=== PATIENT | male | born 1970 | race African-American/Black ===

== ENCOUNTER → 2017-11-02 | Outpatient (CLI) | payer OTHER ==
--- NOTE | 2017-11-02 14:07 | RADIOLOGY REPORT (SQ) ---
EXAM DESCRIPTION: MRI LT LOWER JOINT WITHOUT COMPLETED DATE/TIME: 11/02/2017 12:56 pm REASON FOR STUDY: LETITIA KNEE PAIN M25.562 PAIN IN LEFT KNEE M25.561 PAIN IN RIGHT KNEE COMPARISON: None. TECHNIQUE: Leftknee images acquired and stored on PACS. Multiplanar images include fat sensitive se quences as T1, water sensitive sequences as FST2 or STIR, cartilage sensitive sequences as FSPD, and gradient echo sequences. LIMITATIONS: None. FINDINGS: JOINT AND BURSAE: No effusion. BONE CORTEX AND MARROW: No alteration of signal to suggest marrow replacement. No worrisome bone lesi ons. No occult fracture. ACL: Intact. No degeneration or ganglion cyst. PCL: Intact. MCL: Intact. No periligamentous edema or fluid. LCL: Intact. No periligamentous edema or fluid. MEDIAL MENISCUS: No tears. No abnormal signal. LATERAL MENISCUS: No tears. No abnormal signal. MEDIAL COMPARTMENT: Cartilage preserved. No bone bruises or reactive marrow edema. No osteophytes. LATERAL COMPARTMENT: Cartilage preserved. No bone bruises or reactive marrow edema. No osteophytes. PATELLA: Mild irregular cartilaginous loss of the patella. Trochlear cartilage is intact. There are no significant osteophytes. EXTENSOR MECHANISM: Postsurgical changes of the patellar tendon. Some thickening signal alteration. SOFT TISSUES: Adjacent muscles and subcutaneous tissues normal. Normal flow void in popliteal artery and vein. OTHER: No other significant finding. IMPRESSION: No internal derangement. Surgical changes of the patellar tendon with some tendinopathy and thickening. Mild patellar chondromalacia. TECHNICAL DOCUMENTATION: JOB ID: [id number] [employer]- All Rights Reserved Reading location - IP/workstation name: [email or web address]
--- NOTE | 2017-11-03 08:41 | RADIOLOGY REPORT (SQ) ---
EXAM DESCRIPTION: MRI RT LOWER JOINT WITHOUT COMPLETED DATE/TIME: 11/02/2017 12:56 pm REASON FOR STUDY: LETITIA KNEE PAIN M25.562 PAIN IN LEFT KNEE M25.561 PAIN IN RIGHT KNEE COMPARISON: None. TECHNIQUE: Rightknee images acquired and stored on PACS. Multiplanar images include fat sensitive s equences as T1, water sensitive sequences as FST2 or STIR, cartilage sensitive sequences as FSPD, and gradient echo sequences. LIMITATIONS: None. FINDINGS: JOINT AND BURSAE: No effusion. BONE CORTEX AND MARROW: No alteration of signal to suggest marrow replacement. No worrisome bone lesi ons. No occult fracture. ACL: Orientation and laxity of the ACL suggests a chronic tear likely from the femoral attachment wit h fibrous reattachment to the PCL. Possibly a chronic high-grade partial tear. PCL: Intact. MCL: Intact. No periligamentous edema or fluid. LCL: Intact. No periligamentous edema or fluid. MEDIAL MENISCUS: Flap tear in superior surface of the mid posterior meniscus. LATERAL MENISCUS: No tears. No abnormal signal. MEDIAL COMPARTMENT: No focal cartilage loss. Medial osteophytes. LATERAL COMPARTMENT: Cartilage preserved. No bone bruises or reactive marrow edema. No osteophytes. PATELLA: No chondromalacia. No subchondral cysts. Medial and lateral retinacula intact. EXTENSOR MECHANISM: Intact. Quadriceps and patella tendons normal. SOFT TISSUES: Adjacent muscles and subcutaneous tissues normal. Normal flow void in popliteal artery and vein. OTHER: No other significant finding. 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 Flap tear of the medial meniscus with mild degenerative changes of the medial compartment TECHNICAL DOCUMENTATION: JOB ID: [id number] [employer]- All Rights Reserved Reading location - IP/workstation name: [email or web address]
== END ==
LOC: RAD 11:26
PROVIDERS: ATTEND Physician Assistant Medical
DX: M16.0 Bilateral primary osteoarthritis of hip (principal); M17.0 Bilateral primary osteoarthritis of knee; M54.5 Low back pain; F31.9 Bipolar disorder, unspecified; G47.30 Sleep apnea, unspecified; F34.9 Persistent mood [affective] disorder, unspecified; Z72.0 Tobacco use; F43.10 Post-traumatic stress disorder, unspecified; E11.65 Type 2 diabetes mellitus with hyperglycemia; E66.9 Obesity, unspecified

== ENCOUNTER 2018-10-29 08:40 | Inpatient (IN) | payer OTHER ==
--- NOTE | 2018-10-29 10:06 | RADIOLOGY REPORT (SQ) ---
EXAM DESCRIPTION: CT HEAD WITHOUT COMPLETED DATE/TIME: 10/29/2018 9:54 am REASON FOR STUDY: headache, sudden onset COMPARISON: None. TECHNIQUE: Axial images acquired through the brain without intravenous contrast. Images reviewed wi th bone, brain and subdural windows. Additional sagittal and coronal reconstructions were generated. Images stored on PACS. All CT scanners at this facility use dose modulation, iterative reconstruction, and/or weight based d osing when appropriate to reduce radiation dose to as low as reasonably achievable (ALARA). [facility]: Dose Right [facility]: CareDose [facility]: Dose Right [facility]: Teradose 4D [facility]: [employer] Technologies RADIATION DOSE: CT Rad equipment meets quality standard of care and radiation dose reduction techniq ues were employed. CTDIvol: 53.2 mGy. DLP: 1070 mGy-cm. mGy. LIMITATIONS: None. FINDINGS: VENTRICLES: Normal size and contour. CEREBRUM: No masses. No hemorrhage. No midline shift. There is a focal hypodensity of the very med ial, posterior left temporal lobe (series 2, image 15) of uncertain significance. CEREBELLUM: No masses. No hemorrhage. No alteration of density. No evidence for acute infarction. EXTRAAXIAL SPACES: No fluid collections. No masses. ORBITS AND GLOBE: No intra- or extraconal masses. Normal contour of globe without masses. CALVARIUM: No fracture. PARANASAL SINUSES: No fluid or mucosal thickening. SOFT TISSUES: No mass or hematoma. OTHER: No other significant finding. IMPRESSION: There is a focal hypodensity of the very medial, posterior left temporal lobe (series 2, image 15) of uncertain significance, although possibly representing an acute to subacute infarction. Consider MRI to further evaluate for acute diffusion restriction. EVIDENCE OF ACUTE STROKE: YES. LEFT MCA. COMMENT: Quality ID # [id number]: Final reports with documentation of one or more dose reduction techniques (e.g., Automated exposure control, adjustment of the mA and/or kV according to patient size, use of iterative reconstruction technique) TECHNICAL DOCUMENTATION: JOB ID: [id number] [employer]- All Rights Reserved Reading location - IP/workstation name: [email or web address]
[2018-10-29] MEDS ORDERED: ASPIRIN 81 MG TABLET, CHEWABLE PO ONE (10:39)
[2018-10-29 11:08] LABS: ABSOLUTE BASOPHILS # (AUTO) 0.1 10^3/uL (0.0-0.2); ABSOLUTE EOSINOPHILS # (AUTO) 0.2 10^3/uL (0.0-0.6); ABSOLUTE LYMPHOCYTES (AUTO) 2.5 10^3/uL (0.5-4.7); ABSOLUTE MONOCYTES (AUTO) 0.7 10^3/uL (0.1-1.4); ABSOLUTE NEUT (AUTO) 7.4 10^3/uL (1.7-8.2); BASOPHILS % (AUTO) 0.6 % (0-2); EOSINOPHILS % (AUTO) 1.8 % (0-6); HEMATOCRIT 41.9 % (37.9-51.0); HEMOGLOBIN 13.6 g/dL (13.5-17.0); LYMPHOCYTES % (AUTO) 23.1 % (13-45); MEAN CORPUSCULAR HEMOGLOBIN 26.7 pg (27.0-33.4); MEAN CORPUSCULAR HGB CONC 32.5 g/dL (32.0-36.0); MEAN CORPUSCULAR VOLUME 82 fl (80-97); MONOCYTES % (AUTO) 6.5 % (3-13); PLATELET COUNT 171 10^3/uL (150-450); RED CELL DISTRIBUTION WIDTH 13.1 % (11.5-14.0); TOTAL CELLS COUNTED % (AUTO) 100 %; WHITE BLOOD COUNT 10.9 10^3/uL (4.0-10.5)
[2018-10-29 11:14] LABS: INTERNATIONAL RATION (INR) 0.96; PROTHROMBIN TIME 12.8 SEC (11.4-15.4)
[2018-10-29 11:15] LABS: PARTIAL THROMBOPLASTIN TIME 21.8 SEC (23.5-35.8)
[2018-10-29 11:32] LABS: ALANINE AMINOTRANSFERASE 28 U/L (21-72); ALBUMIN 4.6 g/dL (3.5-5.0); ALKALINE PHOSPHATASE 103 U/L (38-126); ANION GAP 9 (5-19); ASPARTATE AMINO TRANSFERASE 23 U/L (17-59); BILIRUBIN,DIRECT 0.2 mg/dL (0.0-0.4); BILIRUBIN,TOTAL 0.6 mg/dL (0.2-1.3); BLOOD UREA NITROGEN 13 mg/dL (7-20); CARBON DIOXIDE 30 mmol/L (22-30); CHLORIDE 99 mmol/L (98-107); GLUCOSE 237 mg/dL (75-110); POTASSIUM 4.9 mmol/L (3.6-5.0); SODIUM 138.2 mmol/L (137-145); TOTAL PROTEIN 8.1 g/dL (6.3-8.2)
--- NOTE | 2018-10-29 12:33 | RADIOLOGY REPORT (SQ) ---
EXAM DESCRIPTION: MRA HEAD WITHOUT COMPLETED DATE/TIME: 10/29/2018 12:18 pm REASON FOR STUDY: cva COMPARISON: None. TECHNIQUE: Axial 3-D [id number] acquisition imaging performed through the brain in the area of t he [place] of [place]. Images reformatted using 3-D MIPS. LIMITATIONS: None. FINDINGS: SOURCE IMAGES: See separate report of the same date. 3-D MIP: No aneurysm. No occlusions. No significant stenosis. OTHER: No other significant finding. IMPRESSION: NORMAL MRA OF THE [place]. TECHNICAL DOCUMENTATION: JOB ID: [id number]- All Rights Reserved Reading location - IP/workstation name: [email or web address]
--- NOTE | 2018-10-29 12:43 | RADIOLOGY REPORT (SQ) ---
EXAM DESCRIPTION: MRI HEAD WITHOUT COMPLETED DATE/TIME: 10/29/2018 12:17 pm REASON FOR STUDY: CVA COMPARISON: Same day CT TECHNIQUE: Multiplanar imaging includes non-contrasted T1, T2, FLAIR, and diffusion with ADC map seq uences. Images stored on PACS. LIMITATIONS: None. FINDINGS: ANATOMY: No anomalies. Normal vascular flow voids. Pituitary fossa normal. CSF SPACES: Normal in size and contour. No hemorrhage. CEREBRUM: Sulci and gyri normal in size and contour. Diffusion signal abnormality within the medial posterior left temporal lobe with associated decreased signal on the ADC map and corresponding to are a of hyperdensity on same day CT scan compatible with acute infarct. There are more focal areas of r estricted diffusion within the left cerebellar hemisphere, left occipital lobe and right occipital pe riventricular white matter. Additional areas of FLAIR signal abnormality within the periventricular and subcortical region, nonspecific but likely sequelae of microangiopathic disease. No evidence of large space occupying hematoma. There are minimal areas of intrinsic increased T1 signal noted withi n the right paramedian occipital lobe with corresponding susceptibility artifact noted on gradient im aging, likely petechial hemorrhage. POSTERIOR FOSSA: Punctate areas of restricted diffusion within the left cerebellar hemisphere as abov e. No space-occupying hematoma. No edema, masses or mass effect. Internal auditory canals, cerebel lo-pontine angles, mastoids normal. DIFFUSION IMAGING: As above ORBITS: No masses. Globes normal. PARANASAL SINUSES: No fluid levels. Mucosa normal. OTHER: No other significant finding. IMPRESSION: 1. Abnormal area of restricted diffusion corresponding to same-day CT findings and invo lving the left medial posterior temporal lobe compatible with acute infarct. 2. Additional punctate areas of restricted diffusion involving the left temporal lobe, occipital lob e, right occipital periventricular white matter and left cerebellar hemisphere and compatible with ac [place] infarct. 3. Increased T1 signal and susceptibility artifact within the right occipital lobe periventricular w mathew matter likely petechial hemorrhage. No space-occupying hematoma. No significant mass effect or midline shift. Findings discussed with Cody Porras at 1231 hours on 10/29/2018. EVIDENCE OF ACUTE STROKE: YES. 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
--- NOTE | 2018-10-29 12:54 | ER Document Report ---
ED Headache - General Chief Complaint: Headache Stated Complaint: HEADACHE Time Seen by Provider: 10/29/18 09:08 Notes: Patient is a 48-year-old male presents to the emergency department with a left- sided headache for the last 3 days. Patient states his significant other is in the emergency department for an injury to her ankle. Patient states "I figured I might as well get checked out to." Patient states when headache started it "hit me like BAM!" Patient states leaning forward makes the pain worse. Patient states he intermittently has some nausea, currently denying any nausea. Patient is denying any URI symptoms or trauma. Patient's denying any chest pain, shortness of breath, abdominal pain, vomiting. Patient states he typically sees the [place] for his healthcare. States Last time he was there was about a year ago. States he was told he was "borderline diabetic." States he was not started on any medications, states he has been partaking in diet and exercise. Patient is denying any history of high blood pressure, denies any medications on a daily basis TRAVEL OUTSIDE OF THE [place] IN LAST 30 DAYS: No - Related Data Allergies/Adverse Reactions: shellfish derived Allergy (Verified 10/29/18 11:57) Past Medical History - General Information source: Patient - Social History Smoking Status: Current Every Day Smoker Chew tobacco use (# tins/day): No Frequency of alcohol use: None Drug Abuse: None Family History: Reviewed & Not Pertinent Patient has suicidal ideation: No Patient has homicidal ideation: No Renal/ Medical History: Denies: Hx Peritoneal Dialysis Review of Systems - Review of Systems Constitutional: No symptoms reported EENT: See HPI. denies: Blurred vision, Double vision Cardiovascular: No symptoms reported Respiratory: No symptoms reported Gastrointestinal: See HPI Genitourinary: No symptoms reported Male Genitourinary: No symptoms reported Musculoskeletal: No symptoms reported Skin: No symptoms reported Hematologic/Lymphatic: No symptoms reported Neurological/Psychological: See HPI Physical Exam - Vital signs Vitals: Temp Pulse Resp BP Pulse Ox 98.3 F 68 18 143/100 H 98 10/29/18 08:45 10/29/18 08:45 10/29/18 08:45 10/29/18 08:45 10/29/18 08:45 - Notes Notes: GENERAL: Alert, interacts well. No acute distress. HEAD: Normocephalic, atraumatic. No facial droop noted EYES: Pupils equal, round, and reactive to light. Extraocular movements intact. ENT: Oral mucosa moist, tongue midline. NECK: Full range of motion. Supple. Trachea midline. LUNGS: Clear to auscultation bilaterally, no wheezes, rales, or rhonchi. No respiratory distress. HEART: Regular rate and rhythm. No murmur ABDOMEN: Soft, non-tender. Non-distended. Bowel sounds present in all 4 quadrants. EXTREMITIES: Moves all 4 extremities spontaneously. No edema, normal radial and dorsalis pedis pulses bilaterally. No cyanosis. 5 out of 5 strength all 4 extremities. BACK: no cervical, thoracic, lumbar midline tenderness. No saddle anesthesia, normal distal neurovascular exam. NEUROLOGICAL: Alert and oriented x3. Normal speech. cranial nerves II through XII grossly intact PSYCH: Normal affect, normal mood. SKIN: Warm, dry, normal turgor. No rashes or lesions noted. Course - Re-evaluation Re-evalutation: Brain MRI with MRA 10/29/18 00:00 IMPRESSION: NORMAL MRA OF THE [place]. Chest X-Ray 10/29/18 00:00 IMPRESSION: NO SIGNIFICANT RADIOGRAPHIC FINDING IN THE CHEST. Head CT 10/29/18 09:19 IMPRESSION: There is a focal hypodensity of the very medial, posterior left temporal lobe (series 2, image 15) of uncertain significance, although possibly representing an acute to subacute infarction. Consider MRI to further evaluate for acute diffusion restriction. EVIDENCE OF ACUTE STROKE: YES. LEFT MCA. Head MRI 10/29/18 10:39 IMPRESSION: 1. Abnormal area of restricted diffusion corresponding to same-day CT findings and involving the left medial posterior temporal lobe compatible with acute infarct. 2. Additional punctate areas of restricted diffusion involving the left temporal lobe, occipital lobe, right occipital periventricular white matter and left cerebellar hemisphere and compatible with acute infarct. 3. Increased T1 signal and susceptibility artifact within the right occipital lobe periventricular white matter likely petechial hemorrhage. No space- occupying hematoma. No significant mass effect or midline shift. Findings discussed with Cody Porras at 1231 hours on 10/29/2018. EVIDENCE OF ACUTE STROKE: YES. 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 10/29/18 10/29/18 10/29/18 10:56 10:56 10:56 WBC 10.9 H RBC 5.10 Hgb 13.6 Hct 41.9 MCV 82 MCH 26.7 L MCHC 32.5 RDW 13.1 Plt Count 171 Seg Neutrophils % 68.0 Lymphocytes % 23.1 Monocytes % 6.5 Eosinophils % 1.8 Basophils % 0.6 Absolute Neutrophils 7.4 Absolute Lymphocytes 2.5 Absolute Monocytes 0.7 Absolute Eosinophils 0.2 Absolute Basophils 0.1 PT INR APTT Sodium 138.2 Potassium 4.9 Chloride 99 Carbon Dioxide 30 Anion Gap 9 BUN 13 Creatinine 1.24 Est GFR ( Amer) > 60 Est GFR (Non-Af Amer) > 60 Glucose 237 H Calcium 10.0 Total Bilirubin 0.6 Direct Bilirubin 0.2 Neonat Total Bilirubin Not Reportable Neonat Direct Bilirubin Not Reportable Neonat Indirect Bili Not Reportable AST 23 ALT 28 Alkaline Phosphatase 103 Troponin I 0.167 Total Protein 8.1 Albumin 4.6 10/29/18 10:56 WBC RBC Hgb Hct MCV MCH MCHC RDW Plt Count Seg Neutrophils % Lymphocytes % Monocytes % Eosinophils % Basophils % Absolute Neutrophils Absolute Lymphocytes Absolute Monocytes Absolute Eosinophils Absolute Basophils PT 12.8 INR 0.96 APTT 21.8 L Sodium Potassium Chloride Carbon Dioxide Anion Gap BUN Creatinine Est GFR ( Amer) Est GFR (Non-Af Amer) Glucose Calcium Total Bilirubin Direct Bilirubin Neonat Total Bilirubin Neonat Direct Bilirubin Neonat Indirect Bili AST ALT Alkaline Phosphatase Troponin I Total Protein Albumin Throughout patient's stay in the emergency department he continues to be neurologically intact. Pt. making jokes and picking on nursing staff. States he continues with a generalized headache on the left side of his head. States "I can handle it though." Discussed with patient CT results and need for MRI. Discussed patient's elevation in troponin despite no ST segment elevations or depressions noted on EKG. Discussed case with hospitalist to Dr. Santoyo. Patient will be admitted CVA and NSTEMI. - Vital Signs Vital signs: Temp Pulse Resp BP Pulse Ox 98.3 F 73 18 157/95 H 100 10/29/18 18:09 10/29/18 19:05 10/29/18 19:05 10/29/18 19:05 10/29/18 19:05 - Laboratory Result Diagrams: 10/29/18 10:56 10/29/18 10:56 Laboratory results interpreted by me: 10/29/18 10/29/18 10/29/18 10:56 10:56 10:56 WBC 10.9 H MCH 26.7 L APTT 21.8 L Glucose 237 H Discharge - Discharge Clinical Impression: Acute CVA (cerebrovascular accident), Non-STEMI (non-ST elevated myocardial infarction) Condition: Stable Disposition: ADMITTED INPATIENT Admitting Provider: Natanael (Hospitalist) Unit Admitted: [facility]
[2018-10-29] MEDS ORDERED: LABETALOL HCL INJ 20 MG/4 ML DISP.SYRIN IV PRN (14:19)
[2018-10-29] MEDS ORDERED: MAGNESIUM HYDROXIDE SUSP 30 ML UDCUP PO PRN (14:19)
[2018-10-29] MEDS ORDERED: TEMAZEPAM 15 MG CAPSULE PO PRN (14:19)
[2018-10-29] MEDS ORDERED: DOCUSATE SODIUM 100 MG CAPSULE PO PRN (14:19)
[2018-10-29] MEDS ORDERED: ONDANSETRON 4 MG TAB.RAPDIS PO PRN (14:19)
[2018-10-29] MEDS ORDERED: ACETAMINOPHEN 325 MG TABLET PO PRN (14:19)
[2018-10-29] MEDS ORDERED: CLONIDINE HCL 0.1 MG TABLET PO PRN (14:19)
[2018-10-29] MEDS ORDERED: LOSARTAN POTASSIUM 25 MG TABLET PO ONE (14:34)
[2018-10-29 14:49] LABS: APPEARANCE,URINE CLEAR; BILIRUBIN,URINE NEGATIVE (NEGATIVE); COLOR,URINE YELLOW; GLUCOSE, URINE >=500 mg/dL (NEGATIVE); KETONES,URINE NEGATIVE (NEGATIVE); LEUKOCYTE ESTERASE,URINE NEGATIVE (NEGATIVE); NITRITE,URINE NEGATIVE (NEGATIVE); PROTEIN,URINE NEGATIVE (NEGATIVE); URINE SPECIFIC GRAVITY 1.018; UROBILINOGEN,URINE NEGATIVE mg/dL (<2.0)
[2018-10-29] MEDS ORDERED: DEXTROSE 40% GEL 15 GM TUBE PO PRN ×2 (14:59)
[2018-10-29] MEDS ORDERED: DEXTROSE 50%-WATER 25 GM/50 ML DISP.SYRIN IV PRN ×2 (14:59)
[2018-10-29] MEDS ORDERED: GLUCAGON,HUMAN RECOMB 1 MG INJ IM PRN (14:59)
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
[2018-10-29] MEDS: METFORMIN HCL 500 MG TABLET PO SCH (16:14)
--- NOTE | 2018-10-29 16:23 | RADIOLOGY REPORT (SQ) ---
EXAM DESCRIPTION: CHEST SINGLE VIEW COMPLETED DATE/TIME: 10/29/2018 3:55 pm REASON FOR STUDY: assess pt w/ Stroke and NSTEMI in smoker COMPARISON: None. NUMBER OF VIEWS: One view. TECHNIQUE: Single frontal radiographic view of the chest acquired. LIMITATIONS: None. FINDINGS: LUNGS AND PLEURA: No opacities, masses or pneumothorax. No pleural effusion. MEDIASTINUM AND HILAR STRUCTURES: No masses. Contour normal. HEART AND VASCULAR STRUCTURES: Heart normal in size. Normal vasculature. BONES: No acute findings. HARDWARE: None in the chest. OTHER: No other significant finding. IMPRESSION: NO SIGNIFICANT RADIOGRAPHIC FINDING IN THE CHEST. TECHNICAL DOCUMENTATION: JOB ID: [id number] [employer]- All Rights Reserved Reading location - IP/workstation name: [email or web address]
[2018-10-29 16:35] LABS: CREATINE KINASE MB 0.39 ng/mL (<4.55); TROPONIN I 0.144 ng/mL
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
[2018-10-29] MEDS: INSULIN LISPRO 100 UNIT/ML 3 ML VIAL SUBCUT SCH ×2 (19:47→22:09)
--- NOTE | 2018-10-29 20:45 | ER Document Report ---
ED NIH Stroke Scale - NIH Stroke Scale *: 1. NIH scale should be completed with appropriate accompanying assessment tools. *: 2. The NIH should reflect what the patient is capable of doing and should not be coached by the clinician. 1a. Level of Consciousness: 0=Alert;keenly responsive -: 1=Drowsy -: 2=Obtunded -: 3=Coma/unresponsive or reflex to noxious stimuli. 1a. Responses: 0 1b. Orientation Questions: a. What month is it? -: b. How old are you? -: 0=Answers both questions correctly. -: 1=Answers one question correctly or patient is intubated or has orotracheal trauma. -: 2=Answers neither question correctly. 1b. Responses: 0 1c. Response to commands: a. Open and close eyes? -: b. Company Driver and release hand? -: Credit is given despite weakness. Demonstration of task is permitted. Substitute command if hands cannot be used. -: 0=Performs both tasks correctly -: 1=Performs one task correctly -: 2=Performs neither task correctly 1c. Responses: 0 2. Gaze: Establish eye contact and instruct patient to "Follow my finger" -: 0=Normal -: 1=Partial gaze palsy. Gaze is abnormal in one or both eyes, but where forced deviation or total gaze paresis is not present. -: 2=Forced deviation or total gaze paresis. 2. Responses: 0 3. Visual Bazan: Sees fingers in all four quadrants. -: 0=No visual loss. -: 1=Partial hemianopsia. -: 2=Complete hemianopsia. -: 3=Bilateral hemianopsia (including Cortical blindness) 3. Responses: 0 4. Facial Movement: Instruct patient to: -: a. Show me your teeth -: b. Raise your eyebrows -: c. Close your eyes -: d. Smile -: 0=Normal symmetrical movement -: 1=Minor paralysis (flattened nasolabial fold, asymmetry on smiling). -: 2=Partial paralysis (total or near total paralysis of lower face). -: 3=Complete paralysis of upper and lower face 4. Responses: 0 5. Motor functions (left arm): Alternate sides and extend each arm with palms down (90 degrees if sitting or 45 degrees for supine). -: 0=No drift;limb holds for full 10 seconds. -: 1=Drift; limb holds but drifts down before full 10 seconds, but does not hit bed. -: 2=Some effort against gravity; limb cannot get to or maintain position. -: 3=No effort against gravity; limb falls. -: 4=No movement. -: UN=Amputation, joint fusion, explain in comments. 5. Responses (left arm): 0 5. Motor Functions (right arm): Alternate sides and extend each arm with palms down (90 degrees if sitting or 45 degrees for supine). -: 0=No drift;limb holds for full 10 seconds. -: 1=Drift; limb holds but drifts down before full 10 seconds, but does not hit bed. -: 2=Some effort against gravity; limb cannot get to or maintain position. -: 3=No effort against gravity; limb falls. -: 4=No movement. -: UN=Amputation, joint fusion, explain in comments. 5. Responses (right arm): 0 6. Motor Functions (left leg): With patient lying supine, alternate sides and extend each leg (30 degrees always while supine). -: 0=No drift, leg holds position for full 5 seconds -: 1=Drift; leg falls before full 5 seconds but does not hit bed. -: 2=Some effort against gravity, leg falls to bed but some effort against gravity. -: 3=No effort against gravity, leg falls to bed immediately. -: 4=No movement. -: UN=Amputation, joint fusion; explain in comments. 6. Responses (left leg): 0 6. Motor Functions (right leg): With patient lying supine, alternate sides and extend each leg (30 degrees always while supine). -: 0=No drift, leg holds position for full 5 seconds -: 1=Drift; leg falls before full 5 seconds but does not hit bed. -: 2=Some effort against gravity, leg falls to bed but some effort against gravity. -: 3=No effort against gravity, leg falls to bed immediately. -: 4=No movement. -: UN=Amputation, joint fusion; explain in comments. 6. Responses (right leg): 0 7. Limb Ataxia: With eyes open instruct patient to: -: a. "Touch your finger to your nose". -: b. "Touch your heel to your lantigua" -: 0=Absent -: 1=Present in one limb. -: 2=Present in two limbs. -: UN=Amputation or joint fusion; explain in comments. 7. Responses: 0 8. Sensory: Test sensation using pinprick or noxious stimuli. Test as many body parts as possible. -: 0=Normal;no sensory loss -: 1=Mile to moderate sensory loss (patient feels pin prick but is less sharp on affected side). -: 2=Severe or total sensory loss. 8. Responses: 0 9. Best Language: Instruct patient to: -: a. "Describe what you see in this picture." -: b. "Name the items in this picture." -: c. "Read these sentences." -: 0=No aphasia, normal -: 1=Mild to moderate aphasia. -: 2=Severe aphasia -: 3=Mute, global aphasia, no usable speech or auditory comprehension. 9. Responses: 0 10. Articulation, Dysarthia: Instruct patient to: -: "Read these words" or "Repeat these words" -: 0=Normal -: 1=Mild to moderate; patient may slur some words but can be understood without difficulty. -: 2=Severe; patients speech so slurred as to be unintelligible in the absence of dysphasia. -: UN=Intubated or other physical barrier, explain in comments. 10. Responses: 0 11. Extinction or inattention: 0=No abnormality -: 1= Visual, tactile, auditory, spatial, or personal inattention or extinction to bilateral simulation in one or the sensory modalities. -: 2=Profound cathleen-inattention or cathleen-inattention to more than one modality; does not recognize own hand. 11. Responses: 0 Total Score: 0
[2018-10-29] MEDS: HYDROCODONE/ACETAMINOPHEN 5-325 MG TABLET PO PRN (20:48)
[2018-10-29] MEDS: OMEGA-3 ACID ETHYL ESTERS 1 GM CAPSULE PO SCH (20:49)
[2018-10-29 21:49] LABS: CREATINE KINASE MB 0.29 ng/mL (<4.55)
[2018-10-29 21:59] LABS: TROPONIN I 0.142 ng/mL
[2018-10-29] MEDS ORDERED: ATORVASTATIN CALCIUM 40 MG TABLET PO SCH (22:00)
[2018-10-29] MEDS: HEPARIN SOD (PORCINE) 5,000 UNIT/ML 1 ML SYRINGE SUBCUT SCH (22:09)
--- NOTE | 2018-10-29 23:09 | XCELERA REPORT ---
[address] [address] Transthoracic Echocardiogram Report Name: HAYLIE RODRIGUEZ Age: 48 yrs Gender: Male : 1970 Patient Status: Inpatient Patient Location: [facility]^A Study Date: 10/29/2018 07:42 PM Procedure: A two-dimensional transthoracic echocardiogram with color flow and Doppler was performed. The study was technically difficult with many images being suboptimal in quality. Images were not obtained from all of the standard acoustic windows due to the limited scope of the study. Reason For Study: NSTEMI History: NSTEMI. Ordering Physician: OSCAR^Keyshawn^^ Performed By: Lula Kellogg Interpretation Summary The left ventricle is normal in size. A basal lateral aneurysm is present. No True apical 2 chamber views obtained.Hence cannot comment on the apical anterior , the basal anterior, the basal inferior and apical inferior bell.The mid anterior , the mid inferior and the rest of the LV bell contract normally. . LVEF is normal and is greater than 60% in the limited views. Doppler measurements suggest impaired left ventricular relaxation, which is associated with grade I/IV or mild diastolic dysfunction There is no thrombus. Not a study to assess for ASD,VSD , or PFO The right ventricle is not well visualized secondary to technical limitations Right atrium not well visualized secondary to technical limitations The left atrial size is normal. There is no evidence of mitral valve prolapse. There is no vegetation seen on the mitral valve. There is no mitral valve stenosis. There is no mitral regurgitation noted. There is no aortic valvular vegetation. There is no LVOT obstruction. No aortic regurgitation is present. There is no tricuspid stenosis. No tricuspid regurgitation. Unable to calculate RVSP due lack of TR jet. There is no pulmonic valvular regurgitation. There is no pericardial effusion. The aortic root is not well visualized. The inferior vena cava was not visualized MMode/2D Measurements & Calculations RVDd: 2.3 cm LVIDd: 4.7 cm FS: 33.4 % Ao root diam: 3.3 cm IVSd: 1.1 cm LVIDs: 3.1 cm EDV(Teich): 102.8 ml Ao root area: 8.7 cm2 LVPWd: 1.2 cm ESV(Teich): 39.0 ml EF(Teich): 62.0 % LA dimension: 3.4 cm Doppler Measurements & Calculations MV E max mihai: MV P1/2t max mihai: Ao V2 max: LV V1 max P.2 cm/sec 88.9 cm/sec 109.5 cm/sec 3.1 mmHg MV A max mihai: MV P1/2t: 49.5 msec Ao max PG: LV V1 max: 66.7 cm/sec 4.8 mmHg 87.5 cm/sec MV E/A: 0.98 MVA(P1/2t): 4.4 cm2 MV dec slope: 526.0 cm/sec2 MV dec time: 0.21 sec PA V2 max: MV P1/2t-pr_phl: 111.5 cm/sec 49.5 msec PA max P.0 mmHg Left Ventricle The left ventricle is normal in size. A basal lateral aneurysm is present. No True apical 2 chamber views obtained.Hence cannot comment on the apical anterior , the basal anterior, the basal inferior and apical inferior bell.The mid anterior , the mid inferior and the rest of the LV bell contract normally. . LVEF is normal and is greater than 60% in the limited views. Doppler measurements suggest impaired left ventricular relaxation, which is associated with grade I/IV or mild diastolic dysfunction. There is no thrombus. Not a study to assess for ASD,VSD , or PFO. Right Ventricle The right ventricle is not well visualized secondary to technical limitations. Atria Right atrium not well visualized secondary to technical limitations. The left atrial size is normal. Mitral Valve There is no evidence of mitral valve prolapse. There is no vegetation seen on the mitral valve. There is no mitral valve stenosis. There is no mitral regurgitation noted. Aortic Valve There is no aortic valvular vegetation. There is no aortic valve stenosis. There is no LVOT obstruction. No aortic regurgitation is present. Tricuspid Valve There is no tricuspid stenosis. No tricuspid regurgitation. Unable to calculate RVSP due lack of TR jet. Pulmonic Valve There is no pulmonic valvular stenosis. There is no pulmonic valvular regurgitation. Great Vessels The aortic root is not well visualized. The inferior vena cava was not visualized. Effusions There is no pericardial effusion. : EMPERATRIZ^LOLA^J^^MD > Grecia Valverde
[2018-10-29] MEDS: LOSARTAN POTASSIUM 25 MG TABLET PO SCH (23:15)
--- NOTE | 2018-10-30 00:01 | EKG REPORT ---
SEVERITY:- ABNORMAL ECG - SINUS RHYTHM ABNORMAL T, CONSIDER ISCHEMIA, INFERIOR LEADS : Confirmed by: Grecia Valverde MD 29-Oct-2018 23:59:28
--- NOTE | 2018-10-30 03:45 | RADIOLOGY REPORT (SQ) ---
CLINICAL HISTORY: Acute ischemic stroke COMPARISON: None. TECHNIQUE: US CAROTID DOPPLER BILATERAL on 10/29/2018 2:28 PM CDT FINDINGS: Peak systolic velocities are as follows: Right side: Proximal CCA 103, distal CCA 97, proximal ICA 60, distal ICA 101, ECA 105 cm/s. Vertebral artery flow is antegrade. Left side: Proximal CCA 82, distal CCA 87, proximal ICA 85, distal ICA 80, ECA 85 cm/s. Vertebral artery flow is antegrade. IMPRESSION: Less than 50% stenosis of the bilateral internal carotid arteries.
[2018-10-30] MEDS: HEPARIN SOD (PORCINE) 5,000 UNIT/ML 1 ML SYRINGE SUBCUT SCH ×2 (05:15→14:50)
[2018-10-30 05:26] LABS: ABSOLUTE BASOPHILS # (AUTO) 0.1 10^3/uL (0.0-0.2); ABSOLUTE EOSINOPHILS # (AUTO) 0.2 10^3/uL (0.0-0.6); ABSOLUTE LYMPHOCYTES (AUTO) 3.1 10^3/uL (0.5-4.7); ABSOLUTE MONOCYTES (AUTO) 0.9 10^3/uL (0.1-1.4); ABSOLUTE NEUT (AUTO) 6.1 10^3/uL (1.7-8.2); BASOPHILS % (AUTO) 1.3 % (0-2); EOSINOPHILS % (AUTO) 2.1 % (0-6); HEMATOCRIT 39.1 % (37.9-51.0); HEMOGLOBIN 12.8 g/dL (13.5-17.0); LYMPHOCYTES % (AUTO) 29.4 % (13-45); MEAN CORPUSCULAR HGB CONC 32.6 g/dL (32.0-36.0); MEAN CORPUSCULAR VOLUME 83 fl (80-97); MONOCYTES % (AUTO) 8.4 % (3-13); PLATELET COUNT 156 10^3/uL (150-450); RED BLOOD COUNT 4.73 10^6/uL (4.35-5.55); SEGMENTED NEUTROPHILS % (AUTO) 58.8 % (42-78); TOTAL CELLS COUNTED % (AUTO) 100 %; WHITE BLOOD COUNT 10.4 10^3/uL (4.0-10.5)
[2018-10-30 05:51] LABS: ANION GAP 7 (5-19); BLOOD UREA NITROGEN 14 mg/dL (7-20); CALCIUM 9.3 mg/dL (8.4-10.2); CARBON DIOXIDE 27 mmol/L (22-30); CHLORIDE 103 mmol/L (98-107); CHOLESTEROL 181.96 mg/dL (0-200); GLUCOSE 250 mg/dL (75-110); POTASSIUM 4.4 mmol/L (3.6-5.0); TRIGLYCERIDES 234 mg/dL (<150)
[2018-10-30 05:56] LABS: CREATINE KINASE MB 0.25 ng/mL (<4.55)
[2018-10-30 06:01] LABS: TROPONIN I 0.13 ng/mL
[2018-10-30 06:02] LABS: DIRECT LDL 113 mg/dL (<100)
[2018-10-30 06:04] LABS: VLDL CHOLESTEROL 46.8 mg/dL (10-31)
[2018-10-30 06:06] LABS: FREE T3 3.51 pg/mL (2.77-5.27); FREE T4 (FREE THYROXINE) 0.79 ng/dL (0.78-2.19)
[2018-10-30 06:19] LABS: THYROID STIMULATING HORMONE 1.35 uIU/mL (0.47-4.68)
[2018-10-30] MEDS: HYDROCODONE/ACETAMINOPHEN 5-325 MG TABLET PO PRN (08:29)
[2018-10-30] MEDS: INSULIN LISPRO 100 UNIT/ML 3 ML VIAL SUBCUT SCH ×2 (08:30→12:10)
[2018-10-30] MEDS: METFORMIN HCL 500 MG TABLET PO SCH (08:30)
[2018-10-30] MEDS: LOSARTAN POTASSIUM 25 MG TABLET PO SCH (09:11)
[2018-10-30] MEDS: OMEGA-3 ACID ETHYL ESTERS 1 GM CAPSULE PO SCH (09:11)
[2018-10-30] MEDS ORDERED: METOPROLOL SUCCINATE 25 MG TAB.SR.24H PO SCH (10:00)
[2018-10-30] MEDS ORDERED: ASPIRIN 81 MG TABLET, ENT COATED PO SCH (10:00)
--- NOTE | 2018-10-30 14:52 | RADIOLOGY REPORT (SQ) ---
EXAM DESCRIPTION: NM MYOCARDIAL INFARCT AVID COMPLETED DATE/TIME: 10/30/2018 2:17 pm REASON FOR STUDY: Elevated troponin?NSTEMI COMPARISON: None. RADIONUCLIDE AND DOSE: 20.6 mCi Tc 9 M labeled PYP ADDITIONAL DRUGS AND DOSES: None. TECHNIQUE: Radionuclide was administered intravenously. Images were acquired 3 hours following admi nistration. LIMITATIONS: None. FINDINGS: The study demonstrates no abnormal myocardial uptake. Expected uptake in the bony structu res is visualized. There is some uptake visualized in the upper pole the kidneys. IMPRESSION: No scintigraphic evidence of acute myocardial infarction. TECHNICAL DOCUMENTATION: JOB ID: [id number] [employer]- All Rights Reserved Reading location - IP/workstation name: [email or web address]
[2018-10-30 15:28] VITALS: BP 164/98
--- NOTE | 2018-10-30 18:00 | PDOC DISCHARGE SUMMARY ---
General - Admit/Disc Date/PCP Admission Date/Primary Care Provider: 10/29/18 13:05 SHANNON BARON Discharge Date: 10/30/18 - Discharge Diagnosis (1) Acute CVA (cerebrovascular accident) Is this a current diagnosis for this admission?: Yes Summary: The patient had an acute ischemic stroke in the medial posterior temporal lobe. Amazingly there were no focal neurologic deficits. Our goal is to obtain a good blood pressure control and treat for cardiovascular risk factors (2) Non-STEMI (non-ST elevated myocardial infarction) Is this a current diagnosis for this admission?: No Summary: The patient's technetium pyrophosphate scan was negative for myocardial infarction. The mild elevation of troponin was due to strain on the myocardium from the hypertension. The elevated troponins do not represent a non-ST elevation myocardial infarction. (3) Hypertensive urgency, malignant Is this a current diagnosis for this admission?: Yes Summary: The patient has not been on blood pressure medication previously. With the concerns for his stroke as well as cardiovascular risk he will be discharged on metoprolol succinate 25 mg daily, losartan 50 mg daily, Hydrochlorothiazide 25 mg daily as well as aspirin and atorvastatin. (4) Prediabetes Is this a current diagnosis for this admission?: No Summary: His primary care provider has him on metformin 500 mg twice daily for prediabetes. His hemoglobin A1c was 8.9 and in fact qualifies for diabetes mellitus type 2. (5) Diabetes mellitus type II, non insulin dependent Is this a current diagnosis for this admission?: Yes Summary: As noted above the patient carries a diagnosis of prediabetes. However with a hemoglobin A1c of 8.9 this constitutes diabetes mellitus type 2. We will continue his metformin 500 mg twice daily. He will see his primary care provider next week and I will defer further management to him. (6) Elevated troponin I level Is this a current diagnosis for this admission?: Yes Summary: The mild elevation of the serum troponin was most likely due to cardiac strain from hypertension. It is not likely that the patient had an non-ST elevation myocardial infarction. He does have some changes in the EKG and therefore will discharge on metoprolol, losartan, hydrochlorothiazide, aspirin and atorvastatin in addition to his metformin twice daily. - Additional Information Resuscitation Status: Full Code Discharge Diet: Cardiac, Diabetic Discharge Activity: Balance Activity w/Rest Prescriptions: Atorvastatin Calcium [Lipitor 40 mg Tablet] 40 mg PO QHS 14 Days #14 tablet Hydrochlorothiazide [Hydrodiuril 25 mg Tablet] 25 mg PO QAM 14 Days #14 tablet Losartan Potassium [Cozaar 50 mg Tablet] 50 mg PO DAILY 14 Days #14 tablet Metoprolol Succinate [Toprol Xl 25 mg Tab.sr] 25 mg PO DAILY 14 Days #14 tab.sr.24h Home Medications: Metformin HCl 500 mg PO BID 10/29/18 Multivit-Min/Folic/Vit K/Lycop [Men's 50 Plus Multivitamin Tab] 1 each PO DAILY 10/29/18 [place]-3/Dha/Epa/Fish Oil [Fish Oil 1,000 mg Softgel] 1,000 mg PO DAILY 10/29/18 Aspirin [Ecotrin 81 mg EC Tablet] 81 mg PO DAILY tabec 10/30/18 Atorvastatin Calcium [Lipitor 40 mg Tablet] 40 mg PO QHS 14 Days #14 tablet 10/30/18 Hydrochlorothiazide [Hydrodiuril 25 mg Tablet] 25 mg PO QAM 14 Days #14 tablet 10/30/18 Losartan Potassium [Cozaar 50 mg Tablet] 50 mg PO DAILY 14 Days #14 tablet 10/30/18 Metformin HCl [Glucophage 500 mg Tablet] 500 mg PO BIDACBS tablet 10/30/18 Metoprolol Succinate [Toprol Xl 25 mg Tab.sr] 25 mg PO DAILY 14 Days #14 tab.sr.24h 10/30/18 History of Present Illness Patient complains of: Headache History of Present Illness: HAYLIE RODRIGUEZ is a 48 year old male who regularly follows with his [place] clinic doctor. They have started metformin to treat him for prediabetes. He states that his blood pressure has always been normal at these visits. He has had a headache for the last 48 hours. He denies chest pain, pressure, palpitations or diaphoresis. He is not short of breath and has not experienced any nausea or vomiting. His evaluation in the emergency department revealed a troponin of 0.[address] scan/MRI revealed an acute stroke in the medial posterior temporal lobe. There is also evidence of sporadic areas of microvascular disease. His diastolic blood pressure ranged between 101 15 and his systolic pressure has ranged between 150 and 175. He was referred to the hospital service for acute ischemic stroke and non-ST elevation myocardial infarction. Hospital Course Hospital Course: The patient had an unremarkable hospital course. Luckily for him he had no neurologic deficits from the stroke. He still had headache but it was improving. With the addition of medications his blood pressure also began to improve. Despite the elevated troponin levels he did not have an acute my ocardial infarction as his technetium pyrophosphate scan was negative. He did have an abnormal EKG and I did stress that he needs to follow-up not only with his primary care doctor at the [place] clinic but he should see a manager baby quite soon. I electronically prescribed his medications to [facility] with a 2-week supply as this will give him time to obtain the prescriptions from the [place] clinic. Physical Exam Vital Signs: Temp Pulse Resp BP Pulse Ox 98.1 F 73 16 158/97 H 100 10/30/18 07:49 10/30/18 08:00 10/30/18 08:00 10/30/18 08:00 10/30/18 08:00 Intake & Output 10/29/18 10/30/18 10/31/18 06:59 06:59 06:59 Weight 113.4 kg General appearance: PRESENT: no acute distress, cooperative, well-developed. ABSENT: disheveled Head exam: PRESENT: atraumatic, normocephalic Eye exam: PRESENT: conjunctiva pink, EOMI. ABSENT: scleral icterus Ear exam: PRESENT: normal external ear exam Mouth exam: PRESENT: moist, tongue midline Respiratory exam: PRESENT: clear to auscultation fawn, symmetrical, unlabored. ABSENT: accessory muscle use, rales, rhonchi, tachypnea, wheezes Cardiovascular exam: PRESENT: RRR, +S1, +S2 Pulses: PRESENT: normal radial pulses, normal dorsalis pedis pul Vascular exam: ABSENT: pallor GI/Abdominal exam: PRESENT: normal bowel sounds, soft. ABSENT: distended, tenderness Rectal exam: PRESENT: deferred Gentrourinary exam: ABSENT: indwelling catheter Extremities exam: PRESENT: full ROM. ABSENT: joint swelling, pedal edema Musculoskeletal exam: PRESENT: ambulatory, normal inspection Neurological exam: PRESENT: alert, awake, oriented to person, oriented to place, oriented to time, oriented to situation, CN II-XII grossly intact. ABSENT: motor sensory deficit Psychiatric exam: PRESENT: appropriate affect, normal mood. ABSENT: agitated, anxious Focused psych exam: ABSENT: delusional, restlessness Skin exam: PRESENT: dry, normal color, warm. ABSENT: abrasion, rash Results Laboratory Results: 10/30/18 05:15 10/30/18 05:15 10/29/18 10/29/18 10/30/18 10:56 14:31 05:15 WBC 10.4 RBC 4.73 Hgb 12.8 L Hct 39.1 MCV 83 MCH 27.0 MCHC 32.6 RDW 13.0 Plt Count 156 Seg Neutrophils % 58.8 Lymphocytes % 29.4 Monocytes % 8.4 Eosinophils % 2.1 Basophils % 1.3 Absolute Neutrophils 6.1 Absolute Lymphocytes 3.1 Absolute Monocytes 0.9 Absolute Eosinophils 0.2 Absolute Basophils 0.1 Sodium 138.2 Potassium 4.9 Chloride 99 Carbon Dioxide 30 Anion Gap 9 BUN 13 Creatinine 1.24 Est GFR ( Amer) > 60 Est GFR (Non-Af Amer) > 60 Glucose 237 H Calcium 10.0 Total Bilirubin 0.6 AST 23 ALT 28 Alkaline Phosphatase 103 Total Protein 8.1 Albumin 4.6 Triglycerides Cholesterol LDL Cholesterol Direct VLDL Cholesterol HDL Cholesterol TSH Free T4 Free T3 pg/mL Urine Color YELLOW Urine Appearance CLEAR Urine pH 6.0 Ur Specific [place] 1.018 Urine Protein NEGATIVE Urine Glucose (UA) >=500 H Urine Ketones NEGATIVE Urine Blood NEGATIVE Urine Nitrite NEGATIVE Ur Leukocyte Esterase NEGATIVE Urine WBC (Auto) 1 Urine RBC (Auto) 0 10/30/18 10/30/18 05:15 05:15 WBC RBC Hgb Hct MCV MCH MCHC RDW Plt Count Seg Neutrophils % Lymphocytes % Monocytes % Eosinophils % Basophils % Absolute Neutrophils Absolute Lymphocytes Absolute Monocytes Absolute Eosinophils Absolute Basophils Sodium 137.0 Potassium 4.4 Chloride 103 Carbon Dioxide 27 Anion Gap 7 BUN 14 Creatinine 1.05 Est GFR ( Amer) > 60 Est GFR (Non-Af Amer) > 60 Glucose 250 H Calcium 9.3 Total Bilirubin AST ALT Alkaline Phosphatase Total Protein Albumin Triglycerides 234 H Cholesterol 181.96 LDL Cholesterol Direct 113 H VLDL Cholesterol 46.8 H HDL Cholesterol 34 L TSH 1.35 Free T4 0.79 Free T3 pg/mL 3.51 Urine Color Urine Appearance Urine pH Ur Specific [place] Urine Protein Urine Glucose (UA) Urine Ketones Urine Blood Urine Nitrite Ur Leukocyte Esterase Urine WBC (Auto) Urine RBC (Auto) 10/29/18 10/29/18 10/29/18 10:56 15:19 15:19 Creatine Kinase 149 CK-MB (CK-2) 0.39 Troponin I 0.167 0.144 10/29/18 10/29/18 10/30/18 21:00 21:00 05:15 Creatine Kinase 115 121 CK-MB (CK-2) 0.29 Troponin I 0.142 10/30/18 05:15 Creatine Kinase CK-MB (CK-2) 0.25 Troponin I 0.130 Impressions: Brain MRI with MRA 10/29/18 00:00 IMPRESSION: NORMAL MRA OF THE [place]. Chest X-Ray 10/29/18 00:00 IMPRESSION: NO SIGNIFICANT RADIOGRAPHIC FINDING IN THE CHEST. Head CT 10/29/18 09:19 IMPRESSION: There is a focal hypodensity of the very medial, posterior left temporal lobe (series 2, image 15) of uncertain significance, although possibly representing an acute to subacute infarction. Consider MRI to further evaluate for acute diffusion restriction. EVIDENCE OF ACUTE STROKE: YES. LEFT MCA. Head MRI 10/29/18 10:39 IMPRESSION: 1. Abnormal area of restricted diffusion corresponding to same-day CT findings and involving the left medial posterior temporal lobe compatible with acute infarct. 2. Additional punctate areas of restricted diffusion involving the left temporal lobe, occipital lobe, right occipital periventricular white matter and left cerebellar hemisphere and compatible with acute infarct. 3. Increased T1 signal and susceptibility artifact within the right occipital lobe periventricular white matter likely petechial hemorrhage. No space- occupying hematoma. No significant mass effect or midline shift. Findings discussed with Cody Porras at 1231 hours on 10/29/2018. EVIDENCE OF ACUTE STROKE: YES. LEFT ART CRITIC Carotid Doppler Study 10/29/18 14:28 IMPRESSION: Less than 50% stenosis of the bilateral internal carotid arteries. Qualifiers - * PATIENT BEING DISCHARGED WITH ANY OF THE FOLLOWING DIAGNOSIS: Stroke Stroke Pt being discharged on Anti-thrombolytic therapy?: Yes Stroke Pt being discharged on Anti-coagulation therapy?: No Reason(s) for not prescribing Anti-coagulation therapy:: Not indicated Stroke Pt being discharged on Statins?: Yes Acute Heart Failure - Is this a Heart Failure Patient?: No Plan Time Spent: Greater than 30 Minutes
--- NOTE | 2018-10-30 20:03 | EKG REPORT ---
SEVERITY:- ABNORMAL ECG - SINUS RHYTHM ABNORMAL T, CONSIDER ISCHEMIA, INFERIOR LEADS : Confirmed by: Grecia Valverde MD 30-Oct-2018 20:02:11
== END 2018-10-30 16:00 | disposition home or self-care (01) | DRG 66 ==
LOC: ER 08:40 → EH 13:05 → 3W 18:12
PROVIDERS: ADMIT Hospitalist; ATTEND Hospitalist
DX: I63.532 Cerebral infarction due to unspecified occlusion or stenosis of left posterior cerebral artery (principal); I16.0 Hypertensive urgency; E11.9 Type 2 diabetes mellitus without complications; R79.89 Other specified abnormal findings of blood chemistry; Z79.84 Long term (current) use of oral hypoglycemic drugs; Z79.899 Other long term (current) drug therapy; Z79.82 Long term (current) use of aspirin
CPT/HCPCS: 36415; 70450; 70544; 70551; 71045; 78466; 80048; 80053; 80061; 81001; 82550; 82553; 82962; 83036; 84439; 84443; 84481; 84484; 85025; 85610; 85730; 93005; 93010; 93306; 93880; A9538; J1644; J1815; J3490; Q9969

== ENCOUNTER 2018-12-26 23:40 | Inpatient (IN) | payer OTHER ==
[2018-12-27] MEDS ORDERED: METOCLOPRAMIDE HCL INJ/PF 10 MG/2 ML SDV IV ONE (01:44)
--- NOTE | 2018-12-27 01:47 | ER Document Report ---
ED Medical Screen (RME) - General Chief Complaint: Headache Stated Complaint: BLURRY VISION, HEADACHE,VOMITING Time Seen by Provider: 12/27/18 01:44 Primary Care Provider: LIZZY GLASER PA [Primary Care Provider] - Follow up as needed Notes: 48-year-old male with chief complaint of headache since yesterday, he states that yesterday he felt lightheaded, like his vision blurred, and he almost passed out. He states shortly after that he developed a headache and he has had a headache ever since. He states is a throbbing headache on the right side of his head, he vomited, he states she is also had blurred vision. He states he never gets headaches except for once earlier in the year when he had a stroke. He denies chest pain. He denies head injury or fever. He denies focal numbness or weakness. He is not on a blood thinner. TRAVEL OUTSIDE OF THE [place] IN LAST 30 DAYS: No - Related Data Allergies/Adverse Reactions: shellfish derived Allergy (Verified 10/29/18 11:57) Past Medical History - Past Medical History Cardiac Medical History: Denies: Hx Coronary Artery Disease, Hx Hypercholesterolemia, Hx Hypertension Pulmonary Medical History: Denies: Hx Asthma, Hx COPD, Hx Pneumonia Neurological Medical History: Denies: Hx Migraine Endocrine Medical History: Reports: Hx Diabetes Mellitus Type 2. Denies: Hx Hypothyroidism Renal/ Medical History: Denies: Hx Peritoneal Dialysis Musculoskeltal Medical History: Denies Hx Arthritis, Denies Hx Fibromyalgia Skin Medical History: Denies Hx Eczema, Denies Hx Psoriasis Psychiatric Medical History: Denies: Hx Depression Past Surgical History: Reports: Hx Appendectomy, Hx Orthopedic Surgery - Bilateral knee surgery Physical Exam - Vital signs Vitals: Temp Pulse Resp BP Pulse Ox 99.1 F 68 20 135/87 H 100 12/26/18 23:51 12/26/18 23:51 12/26/18 23:51 12/26/18 23:51 12/26/18 23:51 - Neurological Neuro grossly intact: Yes Cognition: Normal Orientation: AAOx4 [place] Coma Scale Eye Opening: Spontaneous [place] Coma Scale Verbal: Oriented [place] Coma Scale Motor: Obeys Commands [place] Coma Scale Total: 15 Speech: Normal Cranial nerves: Normal Cerebellar coordination: Normal Motor strength normal: LUE, RUE, LLE, RLE 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 However based on patient's reported symptoms full work-up will be initiated along with migraine treatment. I have greeted and performed a rapid initial assessment of this patient. A comprehensive ED assessment and evaluation of the patient, analysis of test results and completion of the medical decision making process will be conducted by additional ED providers. - Vital Signs Vital signs: Temp Pulse Resp BP Pulse Ox 99.1 F 68 20 135/87 H 100 12/26/18 23:51 12/26/18 23:51 12/26/18 23:51 12/26/18 23:51 12/26/18 23:51 Doctor's Discharge - Discharge Referrals: LIZZY GLASER PA [Primary Care Provider] - Follow up as needed
--- NOTE | 2018-12-27 02:20 | RADIOLOGY REPORT (SQ) ---
EXAM: CT head without IV contrast CLINICAL DATA: 48-year-old male with headache, blurred vision and no history of headaches TECHNICAL DATA: Multiple axial CT images of the brain were performed followed by sagittal and coronal reconstructed images. The CT study is performed according to ALARA (as low as reasonably achievable) or ALARA/IMAGE GENTLY, with automatic adjustment of mA and/or kV according to patient size. Performed on: 12/27/2018 at 1:52 AM Comparisons: Brain MRI performed on 10/29/2018. FINDINGS: There is a new large wedge-shaped area of decreased attenuation within the right occipital lobe consistent with an acute infarct in the right posterior cerebral artery distribution. There is local mass effect without evidence of midline shift. There is no acute intracranial hemorrhage. Otherwise, there is no evidence of mass or additional mass effect. There are no acute extra-axial fluid collections. The cerebral sulci and ventricles are normal in size and configuration. No additional focal abnormal areas of increased or decreased attenuation are appreciated on this examination. There is no significant mucosal thickening of the paranasal sinuses. The mastoid air cells are clear. The orbital contents are grossly unremarkable. No acute osseous abnormalities are identified. No focal soft tissue abnormalities are identified. IMPRESSION: 1. New large wedge-shaped area of decreased attenuation in the right occipital lobe consistent with an acute infarct in the right posterior cerebral artery distribution. There is no evidence of acute intracranial hemorrhage or midline shift. 2. Otherwise, unremarkable unenhanced head CT.
[2018-12-27 02:25] LABS: ABSOLUTE BASOPHILS # (AUTO) 0.1 10^3/uL (0.0-0.2); ABSOLUTE EOSINOPHILS # (AUTO) 0.1 10^3/uL (0.0-0.6); ABSOLUTE LYMPHOCYTES (AUTO) 1.9 10^3/uL (0.5-4.7); ABSOLUTE MONOCYTES (AUTO) 0.6 10^3/uL (0.1-1.4); ABSOLUTE NEUT (AUTO) 8.9 10^3/uL (1.7-8.2); BASOPHILS % (AUTO) 0.8 % (0-2); EOSINOPHILS % (AUTO) 0.5 % (0-6); HEMATOCRIT 42.3 % (37.9-51.0); HEMOGLOBIN 13.6 g/dL (13.5-17.0); LYMPHOCYTES % (AUTO) 16.6 % (13-45); MEAN CORPUSCULAR HEMOGLOBIN 26.8 pg (27.0-33.4); MEAN CORPUSCULAR HGB CONC 32.1 g/dL (32.0-36.0); MEAN CORPUSCULAR VOLUME 84 fl (80-97); MONOCYTES % (AUTO) 5.5 % (3-13); PLATELET COUNT 198 10^3/uL (150-450); RED BLOOD COUNT 5.06 10^6/uL (4.35-5.55); SEGMENTED NEUTROPHILS % (AUTO) 76.6 % (42-78); TOTAL CELLS COUNTED % (AUTO) 100 %; WHITE BLOOD COUNT 11.7 10^3/uL (4.0-10.5)
[2018-12-27 02:44] LABS: ANION GAP 11 (5-19); BLOOD UREA NITROGEN 13 mg/dL (7-20); CALCIUM 10.2 mg/dL (8.4-10.2); CARBON DIOXIDE 29 mmol/L (22-30); CHLORIDE 98 mmol/L (98-107); GLUCOSE 178 mg/dL (75-110); POTASSIUM 4.8 mmol/L (3.6-5.0)
--- NOTE | 2018-12-27 02:59 | ER Document Report ---
ED General - General Chief Complaint: Headache Stated Complaint: BLURRY VISION, HEADACHE,VOMITING Time Seen by Provider: 12/27/18 01:44 Notes: Patient is a 48-year-old male with chief complaint of headache since yesterday, he states that yesterday he felt lightheaded, like his vision blurred, and he felt off. He states shortly after that he developed a headache and he has had a headache ever since. He states is a throbbing headache on the right side of his head, he vomited, he states she is also had blurred vision. Blurred vision is worse in his left eye. He states he never gets headaches except for once earlier in the year when he had a stroke. He denies chest pain. He denies head injury or fever. He denies focal numbness or weakness. He is not on a blood thinner except a baby aspirin, he states he is compliant with his metoprolol, losartan, atorvastatin, metformin, and he states he recently quit smoking. [facility] 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 TRAVEL OUTSIDE OF THE [place] IN LAST 30 DAYS: No - Related Data Allergies/Adverse Reactions: shellfish derived Allergy (Verified 10/29/18 11:57) Past Medical History - General Information source: Patient, Parent - Social History Smoking Status: Former Smoker Frequency of alcohol use: None Drug Abuse: None Lives with: Family Family History: Reviewed & Not Pertinent - Past Medical History Cardiac Medical History: Denies: Hx Coronary Artery Disease, Hx Hypercholesterolemia, Hx Hypertension Pulmonary Medical History: Denies: Hx Asthma, Hx COPD, Hx Pneumonia Neurological Medical History: Denies: Hx Migraine Endocrine Medical History: Reports: Hx Diabetes Mellitus Type 2. Denies: Hx Hypothyroidism Renal/ Medical History: Denies: Hx Peritoneal Dialysis Musculoskeletal Medical History: Denies Hx Arthritis, Denies Hx Fibromyalgia Skin Medical History: Denies Hx Eczema, Denies Hx Psoriasis Psychiatric Medical History: Denies: Hx Depression Past Surgical History: Reports: Hx Appendectomy, Hx Orthopedic Surgery - B ilateral knee surgery - Immunizations Immunizations up to date: Yes Hx Diphtheria, Pertussis, Tetanus Vaccination: Yes Review of Systems - Review of Systems Constitutional: No symptoms reported EENT: No symptoms reported Cardiovascular: See HPI Respiratory: No symptoms reported Gastrointestinal: No symptoms reported Genitourinary: No symptoms reported Male Genitourinary: No symptoms reported Musculoskeletal: No symptoms reported Skin: No symptoms reported Hematologic/Lymphatic: No symptoms reported Neurological/Psychological: See HPI Physical Exam - Vital signs Vitals: Temp Pulse Resp BP Pulse Ox 99.1 F 68 20 135/87 H 100 12/26/18 23:51 12/26/18 23:51 12/26/18 23:51 12/26/18 23:51 12/26/18 23:51 - Notes Notes: GENERAL: Alert, interacts well. No acute distress. HEAD: Normocephalic, atraumatic. EYES: Pupils equal, round, and reactive to light. Extraocular movements intact. ENT: Oral mucosa moist, tongue midline. Oropharynx unremarkable. Airway patent. Nares patent, no nasal septal hematoma, TM's intact. NECK: Full range of motion. Supple. Trachea midline. LUNGS: Clear to auscultation bilaterally, no wheezes, rales, or rhonchi. No respiratory distress. HEART: Regular rate and rhythm. No murmur ABDOMEN: Soft, non-tender. Non-distended. Bowel sounds present in all 4 quad rants. GENITOURINARY: Deferred EXTREMITIES: Moves all 4 extremities spontaneously. No edema, normal radial and dorsalis pedis pulses bilaterally. No cyanosis. BACK: no cervical, thoracic, lumbar midline tenderness. No saddle anesthesia, normal distal neurovascular exam. Moves all extremities in full range of motion. NEUROLOGICAL: Alert and oriented x3. Normal speech. Visual deficit in the left peripheral field, blurred vision in the left eye, minimal blurred vision in the right eye, no other visual field deficits, cranial nerves intact otherwise. PSYCH: Normal affect, normal mood. SKIN: Warm, dry, normal turgor. No rashes or lesions noted. Course - Re-evaluation Re-evalutation: Review of records shows that on 10/29 patient was diagnosed with an acute CVA but had no focal neurological deficits. Patient had elevated troponins but this was determined to be from his severe uncontrolled hypertension at that time, no history of MO. On presentation patient is well outside of the timeframe for TPA. NIH of 1 (see separate added note). Patient is only noted abnormality/deficit is that he cannot see in the left peripheral visual field. He has blurry vision in the left eye and slight blurry vision in the right eye in addition of this but his EOMs are intact, coordination intact, neurovascular exam otherwise intact. Unfortunately this is consistent with a new acute CVA in the right occipital lobe seen on CAT scan. Patient has a headache but otherwise he does not have any focal neurological deficits. Chest x-ray, CBC, chemistry unremarkable. Troponin indeterminate but better than previously. No chest pain. Nonspecific work-up otherwise. Because of patient's fairly large stroke I discussed with Dr. Stein, he recommends admission to the hospitalist here. He was given aspirin. Discussed with Dr. Mancia, patient admitted to the [facility]. - Vital Signs Vital signs: Temp Pulse Resp BP Pulse Ox 98.4 F 69 20 136/99 H 100 12/27/18 06:20 12/27/18 06:20 12/27/18 06:20 12/27/18 06:20 12/27/18 06:20 - Laboratory Result Diagrams: 12/27/18 02:08 12/27/18 02:08 Laboratory results interpreted by me: 12/27/18 12/27/18 12/27/18 02:08 02:08 02:31 WBC 11.7 H MCH 26.8 L Absolute Neuts (auto) 8.9 H Glucose 178 H Urine Ketones 20 H - EKG Interpretation by Me Additional EKG results interpreted by me: EKG shows sinus rhythm at a rate of 64, inverted T wave in lead III, no T wave inversions or ST segment changes in consecutive leads. Normal axis. Discharge - Discharge Clinical Impression: Acute CVA (cerebrovascular accident), Blurry vision, Headache Condition: Stable Disposition: ADMITTED INPATIENT Admitting Provider: Gavino (Hospitalist) Unit Admitted: [facility]
[2018-12-27 03:07] LABS: INTERNATIONAL RATION (INR) 0.99; PROTHROMBIN TIME 13.1 SEC (11.4-15.4)
[2018-12-27 03:08] LABS: PARTIAL THROMBOPLASTIN TIME 27.8 SEC (23.5-35.8)
[2018-12-27] MEDS ORDERED: ASPIRIN 325 MG TABLET PO ONE (03:15)
--- NOTE | 2018-12-27 03:24 | RADIOLOGY REPORT (SQ) ---
EXAM DESCRIPTION: XR CHEST 1 VIEW COMPLETED DATE/TME: 12/27/2018 02:51 CLINICAL HISTORY: 48 years, Male, near syncope Comparison: None FINDINGS: No focal lung consolidation. No pleural effusion. No pneumothorax. Cardiac and mediastinal silhouette is unremarkable. No acute osseous abnormality. Soft tissues are unremarkable. IMPRESSION: No acute findings. No focal lung consolidation.
[2018-12-27] MEDS ORDERED: DOCUSATE SODIUM 100 MG CAPSULE PO PRN (04:44)
[2018-12-27] MEDS ORDERED: ONDANSETRON 4 MG TAB.RAPDIS PO PRN (04:44)
[2018-12-27] MEDS ORDERED: MAGNESIUM HYDROXIDE SUSP 30 ML UDCUP PO PRN (04:44)
[2018-12-27] MEDS ORDERED: TEMAZEPAM 15 MG CAPSULE PO PRN (04:44)
[2018-12-27] MEDS ORDERED: ONDANSETRON HCL INJ/PF 4 MG/2 ML SDV IV PRN (04:44)
[2018-12-27] MEDS ORDERED: DEXTROSE 40% GEL 15 GM TUBE PO PRN ×2 (04:51)
[2018-12-27] MEDS ORDERED: DEXTROSE 50%-WATER 25 GM/50 ML DISP.SYRIN IV PRN ×2 (04:51)
[2018-12-27] MEDS ORDERED: NALBUPHINE HCL INJ 10 MG/1 ML AMPULE IV PRN ×2 (04:51→05:12)
[2018-12-27] MEDS ORDERED: INSULIN REG, HUMAN 100 UNIT/ML 3 ML VIAL (PYX) SUBCUT PRN (04:51)
[2018-12-27] MEDS ORDERED: GLUCAGON,HUMAN RECOMB 1 MG INJ IM PRN (04:51)
[2018-12-27] MEDS ORDERED: HYDRALAZINE HCL INJ/PF 20 MG/1 ML SDV IV PRN (04:51)
[2018-12-27 05:55] LABS: APPEARANCE,URINE CLEAR; BILIRUBIN,URINE NEGATIVE (NEGATIVE); COLOR,URINE YELLOW; GLUCOSE, URINE NEGATIVE (NEGATIVE); KETONES,URINE 20 mg/dL (NEGATIVE); LEUKOCYTE ESTERASE,URINE NEGATIVE (NEGATIVE); NITRITE,URINE NEGATIVE (NEGATIVE); PROTEIN,URINE NEGATIVE (NEGATIVE); URINE SPECIFIC GRAVITY 1.019; UROBILINOGEN,URINE NEGATIVE mg/dL (<2.0)
--- NOTE | 2018-12-27 06:45 | PDOC H&P ---
History of Present Illness Admission Date/PCP: 12/27/2018 04:09 Michael BARON Patient complains of: Blurry vision History of Present Illness: HAYLIE WASHINGTON is a 48 year old male who presented to the emergency room with a with a 1 day history of blurred vision. He admits the sudden onset of a throbbing, moderately intense, right-sided headache and a sensation of feeling lightheaded accompanying the sudden onset of blurred vision on 07/25/2018. Patient admits that the blurred vision is worse in his left eye than his right and the headache is most intense on the right side of his head. He admits a prior similar headache on one occasion earlier this year associated with a stro ke, without neurologic sequelae. He admits the associated symptoms of vomiting x1 with his current episode. He denies other accompanying or associated symptoms. He has not identified any aggravating or ameliorating factors for his blurred vision or headache. In the emergency room he was found to have an acute right occipital infarction by CAT scan. He was subsequently admitted to the hospital per the stroke protocol. Past Medical History Cardiac Medical History: Reports: Coronary Artery Disease, Myocardial Infarction - 10/2018: Non-STEMI, Hyperlipidema, Hypertension, Peripheral Vascular Disease - Stroke 10/2018 Denies: Atrial Fibrillation, Congestive Heart Failure, DVT, Pulmonary Embolism Pulmonary Medical History: Denies: Asthma, Chronic Obstructive Pulmonary Disease (COPD), Pneumonia EENT Medical History: Denies: Cataracts, Ears - Hearing aids Neurological Medical History: Reports: Ischemic CVA Denies: Hemorrhagic CVA, Migraine, Multiple Sclerosis, Seizures Endocrine Medical History: Reports: Diabetes Mellitus Type 2, Obesity Denies: Diabetes Mellitus Type 1, Hyperthyroidism, Hypothyroidism Renal/ Medical History: Denies: Chronic Kidney Disease, Nephrolithiasis Malignancy Medical History: Reports: None GI Medical History: Denies: Cirrhosis, Crohn's Disease, Hepatitis, Ulcerative Colitis Musculoskeltal Medical History: Denies: Arthritis, Fibromyalgia, Gout Skin Medical History: Denies: Eczema, Psoriasis Psychiatric Medical History: Reports: Tobacco Dependency Denies: Alcohol Dependency, Depression, Substance Abuse Traumatic Medical History: Reports: None Hematology: Denies: Anemia, Sickle Cell Disease, Bleeding Tendencies Infectious Medical History: Reports: None Past Surgical History Past Surgical History: Reports: Appendectomy, Orthopedic Surgery - Bilateral knee surgery, Tonsillectomy Social History Information Source: Patient Lives with: Alone Smoking Status: Former Smoker Frequency of Alcohol Use: None Hx Recreational Drug Use: No Drugs: None Hx Prescription Drug Abuse: No - Advance Directive Resuscitation Status: Full Code Surrogate healthcare decision maker:: Kat Washington Family History Family History: DM, Hypertension. denies: CAD, Malignancy Parental Family History Reviewed: Yes Children Family History Reviewed: No Sibling(s) Family History Reviewed.: Yes Medication/Allergy Home Medications: Multivit-Min/Folic/Vit K/Lycop [Men's 50 Plus Multivitamin Tab] 1 each PO DAILY 10/29/18 [place]-3/Dha/Epa/Fish Oil [Fish Oil 1,000 mg Softgel] 1,000 mg PO DAILY 10/29/18 Aspirin [Ecotrin 81 mg EC Tablet] 81 mg PO DAILY tabec 10/30/18 Atorvastatin Calcium [Lipitor 40 mg Tablet] 40 mg PO QHS 14 Days #14 tablet 10/30/18 Hydrochlorothiazide [Hydrodiuril 25 mg Tablet] 25 mg PO QAM 14 Days #14 tablet 10/30/18 Losartan Potassium [Cozaar 50 mg Tablet] 50 mg PO DAILY 14 Days #14 tablet 10/30/18 Metformin HCl [Glucophage 500 mg Tablet] 500 mg PO BIDACBS tablet 10/30/18 Metoprolol Succinate [Toprol Xl 25 mg Tab.sr] 25 mg PO DAILY 14 Days #14 tab.sr.24h 10/30/18 Allergies/Adverse Reactions: shellfish derived Allergy (Verified 10/29/18 11:57) Review of Systems Constitutional: PRESENT: headache(s), other - Lightheadedness. ABSENT: chills, fever(s) Eyes: PRESENT: as per HPI, visual disturbances - Blurred vision markedly greater on the left than the right. ABSENT: other - Ocular pain Ears: ABSENT: hearing changes, other - Ear pain Nose, Mouth, and Throat: ABSENT: mouth pain, sore throat Cardiovascular: ABSENT: chest pain, palpitations Respiratory: ABSENT: cough, dyspnea Gastrointestinal: PRESENT: nausea - One episode, vomiting - One episode. ABSENT: abdominal pain, constipation, diarrhea Genitourinary: ABSENT: dysuria, hematuria Musculoskeletal: ABSENT: back pain, joint swelling, muscle weakness Integumentary: ABSENT: pruritus, rash Neurological: PRESENT: as per HPI, other - Light headedness and headache. ABSENT: confusion, convulsions, focal weakness, memory loss, syncope Psychiatric: ABSENT: anxiety, depression Endocrine: ABSENT: cold intolerance, heat intolerance Hematologic/Lymphatic: ABSENT: easy bleeding, easy bruising Allergic/Immunologic: ABSENT: seasonal rhinorrhea Physical Exam Vital Signs: Temp Pulse Resp BP Pulse Ox 98.8 F 70 12 147/97 H 100 12/27/18 04:02 12/27/18 03:26 12/27/18 03:42 12/27/18 03:26 12/27/18 03:42 Intake & Output 12/25/18 12/26/18 12/27/18 23:59 23:59 23:59 Weight 119.2 kg General appearance: PRESENT: no acute distress, cooperative, obese Head exam: ABSENT: atraumatic, normocephalic Eye exam: PRESENT: conjunctiva pink. ABSENT: conjunctival injection, scleral icterus Ear exam: PRESENT: normal external ear exam. ABSENT: bleeding, drainage Mouth exam: PRESENT: dry mucosa, neck supple Neck exam: ABSENT: thyromegaly, tracheal deviation Respiratory exam: PRESENT: clear to auscultation fawn, symmetrical, unlabored Cardiovascular exam: PRESENT: RRR. ABSENT: clicks, gallop, rubs Pulses: PRESENT: normal radial pulses, normal dorsalis pedis pul Vascular exam: PRESENT: normal capillary refill. ABSENT: pallor GI/Abdominal exam: PRESENT: normal bowel sounds, soft Rectal exam: PRESENT: deferred Extremities exam: ABSENT: joint swelling, pedal edema, tenderness Musculoskeletal exam: PRESENT: full ROM, normal inspection Neurological exam: PRESENT: alert, oriented to person, oriented to time, oriented to situation. ABSENT: CN II-XII grossly intact - Blurry vision on visual field exam primarily affecting the left eye Psychiatric exam: PRESENT: appropriate affect, normal mood Skin exam: PRESENT: dry, intact, warm. ABSENT: jaundice, rash, urticaria Results Laboratory Results: 12/27/18 02:08 12/27/18 02:08 12/27/18 12/27/18 02:08 02:08 WBC 11.7 H RBC 5.06 Hgb 13.6 Hct 42.3 MCV 84 MCH 26.8 L MCHC 32.1 RDW 13.0 Plt Count 198 Seg Neutrophils % 76.6 Sodium 138.0 Potassium 4.8 Chloride 98 Carbon Dioxide 29 Anion Gap 11 BUN 13 Creatinine 1.08 Est GFR ( Amer) > 60 Glucose 178 H Calcium 10.2 12/27/18 02:08 Troponin I 0.046 Impressions: Head CT 12/27/18 01:44 IMPRESSION: 1. New large wedge-shaped area of decreased attenuation in the right occipital lobe consistent with an acute infarct in the right posterior cerebral artery distribution. There is no evidence of acute intracranial hemorrhage or midline shift. 2. Otherwise, unremarkable unenhanced head CT. Chest X-Ray 12/27/18 02:51 IMPRESSION: No acute findings. No focal lung consolidation. 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 He will be continued on his current medications appropriate for acute stroke therapy. He will be observed closely throughout his hospital course for any changes in his neurologic status. The patient will use Nubain 5 to 10 mg IV every 3 hours on a as needed basis for his headache using a sliding scale for pain. (2) Hypertension Qualifiers: Hypertension type: essential hypertension Qualified Code(s): I10 - Essen tial (primary) hypertension Is this a current diagnosis for this admission?: Yes Plan: Patient will be continued on his current antihypertensive regiment with adjustments made as required for adequate control. Patient's blood pressure was monitored closely throughout his hospital course. (3) Diabetes mellitus type 2 in obese Is this a current diagnosis for this admission?: Yes Plan: Patient be continued on his usual diabetic diet and diabetic therapy. Hemoglobin A1c will be obtained to evaluate the efficacy of his current therapy. Adjustments will be made to his therapy as needed. Before meals and at bedtime Accu-Cheks will be obtained and a sliding scale insulin regiment will be used to control hyperglycemia, a hypoglycemic protocol is in place for treatment of hypoglycemic readings. (4) Coronary artery disease Qualifiers: Coronary Disease-Associated Artery/Lesion type: [place] artery [place] vs. tr ansplanted heart: [place] heart Associated angina: without angina Qualified Code(s): I25.10 - Atherosclerotic heart disease of [place] coronary artery without angina pectoris Is this a current diagnosis for this admission?: Yes Plan: Patient be continued on his usual regimen for control of his coronary artery disease. He will be observed closely on a clinical basis throughout his hospital course for any changes in his cardiac status. (5) HLD (hyperlipidemia) Qualifiers: Hyperlipidemia type: mixed hyperlipidemia Qualified Code(s): E78.2 - Mixed hyperlipidemia Is this a current diagnosis for this admission?: Yes Plan: Patient be continued on his current lipid therapy and a cardiac diet. A lipid profile will be obtained to assess the efficacy of his current therapy. - Time Time Spent with patient: 25-34 minutes Medications reviewed and adjusted accordingly: Yes Anticipated discharge: Home - Inpatient Certification Based on my medical assessment, after consideration of the patient's comorbidities, presenting symptoms, or acuity I expect that the services needed warrant INPATIENT care.: Yes I certify that my determination is in accordance with my understanding of Medicare's requirements for reasonable and necessary INPATIENT services [42 CFR 412.3e].: Yes Medical Necessity: Significant Comorbidiites Make Outpatient Treatment Too Risky, Need Close Monitoring Due to Risk of Patient Decompensation, Need For Continuous Telemetry Monitoring, Need for Neurological Checks, Risk of Complication if Not Cared For in Hospital
--- NOTE | 2018-12-27 07:00 | ER Document Report ---
ED NIH Stroke Scale - NIH Stroke Scale When completed:: Protocol *: 1. NIH scale should be completed with appropriate accompanying assessment tools. *: 2. The NIH should reflect what the patient is capable of doing and should not be coached by the clinician. 1a. Level of Consciousness: 0=Alert;keenly responsive -: 1=Drowsy -: 2=Obtunded -: 3=Coma/unresponsive or reflex to noxious stimuli. 1a. Responses: 0 1b. Orientation Questions: a. What month is it? -: b. How old are you? -: 0=Answers both questions correctly. -: 1=Answers one question correctly or patient is intubated or has orotracheal trauma. -: 2=Answers neither question correctly. 1b. Responses: 0 1c. Response to commands: a. Open and close eyes? -: b. 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 -: Credit is given despite weakness. Demonstration of task is permitted. Substitute command if hands cannot be used. -: 0=Performs both tasks correctly -: 1=Performs one task correctly -: 2=Performs neither task correctly 1c. Responses: 0 2. Gaze: Establish eye contact and instruct patient to "Follow my finger" -: 0=Normal -: 1=Partial gaze palsy. Gaze is abnormal in one or both eyes, but where forced deviation or total gaze paresis is not present. -: 2=Forced deviation or total gaze paresis. 2. Responses: 0 3. Visual [place]: Sees fingers in all four quadrants. -: 0=No visual loss. -: 1=Partial hemianopsia. -: 2=Complete hemianopsia. -: 3=Bilateral hemianopsia (including Cortical blindness) 3. Responses: 1 4. Facial Movement: Instruct patient to: -: a. Show me your teeth -: b. Raise your eyebrows -: c. Close your eyes -: d. Smile -: 0=Normal symmetrical movement -: 1=Minor paralysis (flattened nasolabial fold, asymmetry on smiling). -: 2=Partial paralysis (total or near total paralysis of lower face). -: 3=Complete paralysis of upper and lower face 4. Responses: 0 5. Motor functions (left arm): Alternate sides and extend each arm with palms down (90 degrees if sitting or 45 degrees for supine). -: 0=No drift;limb holds for full 10 seconds. -: 1=Drift; limb holds but drifts down before full 10 seconds, but does not hit bed. -: 2=Some effort against gravity; limb cannot get to or maintain position. -: 3=No effort against gravity; limb falls. -: 4=No movement. -: UN=Amputation, joint fusion, explain in comments. 5. Responses (left arm): 0 5. Motor Functions (right arm): Alternate sides and extend each arm with palms down (90 degrees if sitting or 45 degrees for supine). -: 0=No drift;limb holds for full 10 seconds. -: 1=Drift; limb holds but drifts down before full 10 seconds, but does not hit bed. -: 2=Some effort against gravity; limb cannot get to or maintain position. -: 3=No effort against gravity; limb falls. -: 4=No movement. -: UN=Amputation, joint fusion, explain in comments. 5. Responses (right arm): 0 6. Motor Functions (left leg): With patient lying supine, alternate sides and extend each leg (30 degrees always while supine). -: 0=No drift, leg holds position for full 5 seconds -: 1=Drift; leg falls before full 5 seconds but does not hit bed. -: 2=Some effort against gravity, leg falls to bed but some effort against gravity. -: 3=No effort against gravity, leg falls to bed immediately. -: 4=No movement. -: UN=Amputation, joint fusion; explain in comments. 6. Responses (left leg): 0 6. Motor Functions (right leg): With patient lying supine, alternate sides and extend each leg (30 degrees always while supine). -: 0=No drift, leg holds position for full 5 seconds -: 1=Drift; leg falls before full 5 seconds but does not hit bed. -: 2=Some effort against gravity, leg falls to bed but some effort against gravity. -: 3=No effort against gravity, leg falls to bed immediately. -: 4=No movement. -: UN=Amputation, joint fusion; explain in comments. 6. Responses (right leg): 0 7. Limb Ataxia: With eyes open instruct patient to: -: a. "Touch your finger to your nose". -: b. "Touch your heel to your [place]" -: 0=Absent -: 1=Present in one limb. -: 2=Present in two limbs. -: UN=Amputation or joint fusion; explain in comments. 7. Responses: 0 8. Sensory: Test sensation using pinprick or noxious stimuli. Test as many body parts as possible. -: 0=Normal;no sensory loss -: 1=Mile to moderate sensory loss (patient feels pin prick but is less sharp on affected side). -: 2=Severe or total sensory loss. 8. Responses: 0 9. Best Language: Instruct patient to: -: a. "Describe what you see in this picture." -: b. "Name the items in this picture." -: c. "Read these sentences." -: 0=No aphasia, normal -: 1=Mild to moderate aphasia. -: 2=Severe aphasia -: 3=[place], global aphasia, no usable speech or auditory comprehension. 9. Responses: 0 10. Articulation, Dysarthia: Instruct patient to: -: "Read these words" or "Repeat these words" -: 0=Normal -: 1=Mild to moderate; patient may slur some words but can be understood without difficulty. -: 2=Severe; patients speech so slurred as to be unintelligible in the absence of dysphasia. -: UN=Intubated or other physical barrier, explain in comments. 10. Responses: 0 11. Extinction or inattention: 0=No abnormality -: 1= Visual, tactile, auditory, spatial, or personal inattention or extinction to bilateral simulation in one or the sensory modalities. -: 2=Profound cathleen-inattention or cathleen-inattention to more than one modality; does not recognize own hand. 11. Responses: 0 Total Score: 1
[2018-12-27] MEDS: METFORMIN HCL 500 MG TABLET PO SCH ×2 (08:56→16:55)
--- NOTE | 2018-12-27 09:54 | PDOC PROGRESS REPORT ---
Subjective Progress Note for:: 12/27/18 Subjective:: 48 year old male who presented to the emergency room with a with a 1 day history of blurred vision. He admits the sudden onset of a throbbing, moderately intense, right-sided headache and a sensation of feeling lightheaded accompanying the sudden onset of blurred vision on 07/25/2018. Patient admits that the blurred vision is worse in his left eye than his right and the headache is most intense on the right side of his head. He admits a prior similar headache on one occasion earlier this year associated with a stroke, without neurologic sequelae. He admits the associated symptoms of vomiting x1 with his current episode. He denies other accompanying or associated symptoms. He has not identified any aggravating or ameliorating factors for his blurred vision or headache. In the emergency room he was found to have an acute right occipital infarction by CAT scan. He was subsequently admitted to the hospital per the stroke protocol. 12/27/[id number]-old male admitted with new onset CVA. Patient only complaint is his vision. Otherwise he said he is doing well. No acute events since admission. Plan to do the MRI of the neck and head today. Stroke protocol was implemented. Blood pressure today is 143/100. Plan is to continue the present management. Reason For Visit: ACUTE ISCHEMIC INFARCTION RIGHT POSTERIOR CEREBRAL Physical Exam Vital Signs: Temp Pulse Resp BP Pulse Ox 98.3 F 72 18 143/84 H 100 12/27/18 08:01 12/27/18 08:01 12/27/18 08:01 12/27/18 08:01 12/27/18 08:01 Intake & Output 12/26/18 12/27/18 12/28/18 06:59 06:59 06:59 Weight 118.3 kg General appearance: PRESENT: no acute distress, cooperative, obese Head exam: PRESENT: atraumatic Eye exam: PRESENT: PERRLA Mouth exam: PRESENT: moist, tongue midline Teeth exam: PRESENT: poor dentation Neck exam: ABSENT: carotid bruit, JVD, lymphadenopathy, thyromegaly Respiratory exam: PRESENT: decreased breath sounds Pulses: PRESENT: normal dorsalis pedis pul GI/Abdominal exam: PRESENT: normal bowel sounds, soft. ABSENT: distended, guarding, mass, organolmegaly, rebound, tenderness Rectal exam: PRESENT: deferred Extremities exam: PRESENT: full ROM. ABSENT: calf tenderness, clubbing, pedal edema Neurological exam: PRESENT: alert, awake, oriented to person, oriented to place, oriented to time, oriented to situation, CN II-XII grossly intact. ABSENT: motor sensory deficit Psychiatric exam: PRESENT: appropriate affect, normal mood. ABSENT: homicidal ideation, suicidal ideation Results Laboratory Results: 12/27/18 02:08 12/27/18 02:08 12/27/18 12/27/18 12/27/18 02:08 02:08 02:31 WBC 11.7 H RBC 5.06 Hgb 13.6 Hct 42.3 MCV 84 MCH 26.8 L MCHC 32.1 RDW 13.0 Plt Count 198 Seg Neutrophils % 76.6 Sodium 138.0 Potassium 4.8 Chloride 98 Carbon Dioxide 29 Anion Gap 11 BUN 13 Creatinine 1.08 Est GFR ( Amer) > 60 Glucose 178 H Calcium 10.2 Urine Color YELLOW Urine Appearance CLEAR Urine pH 6.0 Ur Specific [place] 1.019 Urine Protein NEGATIVE Urine Glucose (UA) NEGATIVE Urine Ketones 20 H Urine Blood NEGATIVE Urine Nitrite NEGATIVE Ur Leukocyte Esterase NEGATIVE Urine WBC (Auto) 2 Urine RBC (Auto) 0 12/27/18 02:08 Troponin I 0.046 Impressions: Head CT 12/27/18 01:44 IMPRESSION: 1. New large wedge-shaped area of decreased attenuation in the right occipital lobe consistent with an acute infarct in the right posterior cerebral artery distribution. There is no evidence of acute intracranial hemorrhage or midline shift. 2. Otherwise, unremarkable unenhanced head CT. Chest X-Ray 12/27/18 02:51 IMPRESSION: No acute findings. No focal lung consolidation. 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 He will be continued on his current medications appropriate for acute stroke therapy. He will be observed closely throughout his hospital course for any changes in his neurologic status. The patient will use Nubain 5 to 10 mg IV every 3 hours on a as needed basis for his headache using a sliding scale for pain. 12/27/18-admitted for new onset cva and pr qian prior cva in october this year. Stroke protocol was implemented. Patient is going for MRI of the neck and head today. PT consult was requested. Fall precautions are requested. Presently on aspirin, atorvastatin. To start him on Plavix from today. (2) Diabetes mellitus type 2 in obese Is this a current diagnosis for this admission?: Yes Plan: Patient be continued on his usual diabetic diet and diabetic therapy. Hemoglobin A1c will be obtained to evaluate the efficacy of his current therapy. Adjustments will be made to his therapy as needed. Before meals and at bedtime Accu-Cheks will be obtained and a sliding scale insulin regiment will be used to control hyperglycemia, a hypoglycemic protocol is in place for treatment of hypoglycemic readings. 12/27/2018-patient has history of type 2 diabetes mellitus latest blood sugar is 128. On insulin sliding scale. Presently he is on metformin. Plan is to continue the present management diet exercise weight loss lifestyle modifications are discussed with the patient. Hemoglobin A1c is pending. (3) Hypertension Qualifiers: Hypertension type: essential hypertension Qualified Code(s): I10 - Essential (primary) hypertension Is this a current diagnosis for this admission?: Yes Plan: Patient will be continued on his current antihypertensive regiment with adjustments made as required for adequate control. Patient's blood pressure was monitored closely throughout his hospital course. 12/27/2018-patient has history of hypertension latest blood pressure is 143/84. Presently on lisinopril and metoprolol plan is to continue the present management. (4) HLD (hyperlipidemia) Qualifiers: Hyperlipidemia type: mixed hyperlipidemia Qualified Code(s): E78.2 - Mixed hyperlipidemia Is this a current diagnosis for this admission?: Yes Plan: Patient be continued on his current lipid therapy and a cardiac diet. A lipid profile will be obtained to assess the efficacy of his current therapy. 12/27/2018-patient has history of hyperlipidemia on atorvastatin plan is to continue the present management. (5) Coronary artery disease Qualifiers: Coronary Disease-Associated Artery/Lesion type: [place] artery [place] vs. transplanted heart: [place] heart Associated angina: without angina Qualified Code(s): I25.10 - Atherosclerotic heart disease of [place] coronary artery without angina pectoris Is this a current diagnosis for this admission?: Yes Plan: Patient be continued on his usual regimen for control of his coronary artery disease. He will be observed closely on a clinical basis throughout his hospital course for any changes in his cardiac status. 12/27/2018-patient is given the history of coronary artery disease with heart attack this year. No complaints of chest pain today. (6) Morbid obesity Is this a current diagnosis for this admission?: No Plan: 12/27/2018-patient's BMI is more than 32 diet exercise weight loss lifestyle m odifications discussed with the patient. - Time Time Spent with patient: 25-34 minutes Anticipated discharge: Home
[2018-12-27] MEDS ORDERED: LYCOP PO SCH (10:00)
[2018-12-27] MEDS ORDERED: [UNRECOGNIZED DRUG - OTHER] PO SCH (10:00)
[2018-12-27] MEDS ORDERED: FOLIC PO SCH (10:00)
[2018-12-27] MEDS ORDERED: (PENDING PHARMACY ID) (Omega-3/Dha/Epa/Fish Oil [Fish Oil 1,000 Mg Softgel] 1,000 MG) PO SCH (10:00)
[2018-12-27] MEDS ORDERED: VIT K PO SCH (10:00)
[2018-12-27] MEDS ORDERED: MULTIVIT MIN PO SCH (10:00)
[2018-12-27] MEDS: ASPIRIN 81 MG TABLET, ENT COATED PO SCH (10:01)
[2018-12-27] MEDS: METOPROLOL SUCCINATE 50 MG TAB.SR.24H PO SCH (10:01)
[2018-12-27] MEDS: LOSARTAN POTASSIUM 50 MG TABLET PO SCH (10:01)
[2018-12-27] MEDS: CLOPIDOGREL BISULFATE 75 MG TABLET PO SCH (10:01)
[2018-12-27] MEDS: HYDROCHLOROTHIAZIDE 25 MG TABLET PO SCH (10:05)
[2018-12-27] MEDS: MULTIVITAMIN TABLET PO SCH (10:13)
[2018-12-27] MEDS: OMEGA-3 ACID ETHYL ESTERS 1 GM CAPSULE PO SCH (10:13)
[2018-12-27] MEDS: NALBUPHINE HCL INJ 10 MG/1 ML AMPULE IV PRN (12:27)
--- NOTE | 2018-12-27 12:39 | RADIOLOGY REPORT (SQ) ---
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 TECHNIQUE: Multiplanar imaging includes non-contrasted T1, T2, FLAIR, and diffusion with ADC map seq uences. Images stored on PACS. LIMITATIONS: None. FINDINGS: ANATOMY: Empty sella anatomic variant. CSF SPACES: Normal in size and contour. No hemorrhage. CEREBRUM: There is a 2 cm maximum diameter focus of abnormal signal in the left occipital lobe consis tent with old infarct. Geographic area of abnormal signal in the right occipital lobe which is brigh t on diffusion and dark on ADC map. No hemorrhage. No significant mass effect. POSTERIOR FOSSA: Tiny lacunar infarct right occipital lobe bright on diffusion and dark on ADC map. No hemorrhage or mass effect. DIFFUSION IMAGING: See above. ORBITS: No masses. Globes normal. PARANASAL SINUSES: No fluid levels. Mucosa normal. OTHER: No other significant finding. IMPRESSION: Acute nonhemorrhagic infarct right occipital lobe. Acute lacunar infarct right cerebell um. EVIDENCE OF ACUTE STROKE: YES. 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 TECHNICAL DOCUMENTATION: JOB ID: [id number] [employer]- All Rights Reserved Reading location - IP/workstation name: [email or web address]
--- NOTE | 2018-12-27 12:43 | RADIOLOGY REPORT (SQ) ---
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 TECHNIQUE: Axial 3-D [id number] acquisition imaging performed through the brain in the area of t he [place]. Images reformatted using 3-D MIPS. LIMITATIONS: None. FINDINGS: SOURCE IMAGES: See separate report of the same date. 3-D MIP: No aneurysm. No occlusions. No significant stenosis. OTHER: No other significant finding. IMPRESSION: NORMAL MRA OF THE [place] OF [place]. TECHNICAL DOCUMENTATION: JOB ID: [id number] [employer]- All Rights Reserved Reading location - IP/workstation name: [email or web address]
--- NOTE | 2018-12-27 12:45 | RADIOLOGY REPORT (SQ) ---
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 TECHNIQUE: Axial 2-D volume acquisition imaging through the extracranial carotid and vertebral arter ies with reformatting using 3-D MIPS. LIMITATIONS: Motion artifact. FINDINGS: RIGHT CAROTID ARTERY: No stenosis or occlusive changes. Limited visualization of the orig in. LEFT CAROTID ARTERY: No stenosis or occlusive changes. Limited visualization of the origin. VERTEBRAL ARTERY: The extracranial portions of the vertebral basilar system are preserved without lou nosis. No aneurysmal dilatation or dissection is seen. OTHER: No other significant finding. IMPRESSION: NO SIGNIFICANT STENOSIS. COMMENT: Quality ID #[id number]: Measurements of distal internal carotid diameter were used as the denomin ator for stenosis measurement. TECHNICAL DOCUMENTATION: JOB ID: [id number] [employer]- All Rights Reserved Reading location - IP/workstation name: [email or web address]
[2018-12-27] MEDS: HEPARIN SOD (PORCINE) 5,000 UNIT/ML 1 ML VIAL SUBCUT SCH ×2 (14:59→21:06)
[2018-12-27] MEDS: ACETAMINOPHEN 325 MG TABLET PO PRN ×2 (16:54→21:04)
[2018-12-27] MEDS: TRAMADOL HCL 50 MG TABLET PO PRN (21:05)
[2018-12-27] MEDS: ATORVASTATIN CALCIUM 40 MG TABLET PO SCH (21:07)
[2018-12-27] MEDS ORDERED: ATORVASTATIN CALCIUM 40 MG TABLET PO SCH (22:00)
[2018-12-28] MEDS ORDERED: KETOROLAC TROMETHAMINE INJ/PF 30 MG/1 ML SDV IV ONE (04:45)
[2018-12-28] MEDS: HEPARIN SOD (PORCINE) 5,000 UNIT/ML 1 ML VIAL SUBCUT SCH ×4 (05:02→22:34)
[2018-12-28 05:52] LABS: ABSOLUTE EOSINOPHILS # (AUTO) 0.1 10^3/uL (0.0-0.6); ABSOLUTE LYMPHOCYTES (AUTO) 2.7 10^3/uL (0.5-4.7); ABSOLUTE MONOCYTES (AUTO) 0.9 10^3/uL (0.1-1.4); ABSOLUTE NEUT (AUTO) 4.8 10^3/uL (1.7-8.2); BASOPHILS % (AUTO) 0.4 % (0-2); EOSINOPHILS % (AUTO) 1.3 % (0-6); HEMATOCRIT 37.2 % (37.9-51.0); HEMOGLOBIN 12.1 g/dL (13.5-17.0); LYMPHOCYTES % (AUTO) 31.2 % (13-45); MEAN CORPUSCULAR HGB CONC 32.5 g/dL (32.0-36.0); MEAN CORPUSCULAR VOLUME 83 fl (80-97); MONOCYTES % (AUTO) 10.9 % (3-13); PLATELET COUNT 166 10^3/uL (150-450); RED BLOOD COUNT 4.47 10^6/uL (4.35-5.55); RED CELL DISTRIBUTION WIDTH 12.8 % (11.5-14.0); SEGMENTED NEUTROPHILS % (AUTO) 56.2 % (42-78); TOTAL CELLS COUNTED % (AUTO) 100 %; WHITE BLOOD COUNT 8.5 10^3/uL (4.0-10.5)
[2018-12-28 06:37] LABS: ALBUMIN 4.1 g/dL (3.5-5.0); ALKALINE PHOSPHATASE 75 U/L (38-126); ANION GAP 10 (5-19); ASPARTATE AMINO TRANSFERASE 24 U/L (17-59); BILIRUBIN,DIRECT 0.2 mg/dL (0.0-0.4); BILIRUBIN,TOTAL 0.6 mg/dL (0.2-1.3); BLOOD UREA NITROGEN 13 mg/dL (7-20); CALCIUM 9.7 mg/dL (8.4-10.2); CARBON DIOXIDE 28 mmol/L (22-30); CHLORIDE 99 mmol/L (98-107); CHOLESTEROL 118.73 mg/dL (0-200); GLUCOSE 164 mg/dL (75-110); POTASSIUM 4.3 mmol/L (3.6-5.0); TRIGLYCERIDES 140 mg/dL (<150)
[2018-12-28 06:48] LABS: DIRECT LDL 63 mg/dL (<100)
[2018-12-28] MEDS: CLOPIDOGREL BISULFATE 75 MG TABLET PO SCH (09:53)
[2018-12-28] MEDS: ASPIRIN 81 MG TABLET, ENT COATED PO SCH (09:53)
[2018-12-28] MEDS: OMEGA-3 ACID ETHYL ESTERS 1 GM CAPSULE PO SCH (09:54)
[2018-12-28] MEDS: HYDROCHLOROTHIAZIDE 25 MG TABLET PO SCH (09:54)
[2018-12-28] MEDS: MULTIVITAMIN TABLET PO SCH (09:54)
[2018-12-28] MEDS: METFORMIN HCL 500 MG TABLET PO SCH ×2 (09:54→17:14)
[2018-12-28] MEDS: METOPROLOL SUCCINATE 50 MG TAB.SR.24H PO SCH (09:54)
[2018-12-28] MEDS: LOSARTAN POTASSIUM 50 MG TABLET PO SCH (09:55)
[2018-12-28] MEDS: INSULIN REG, HUMAN 100 UNIT/ML 3 ML VIAL (PYX) SUBCUT SCH ×4 (09:55→22:43)
--- NOTE | 2018-12-28 10:36 | PDOC PROGRESS REPORT ---
Subjective Progress Note for:: 12/28/18 Subjective:: 48 year old male who presented to the emergency room with a with a 1 day history of blurred vision. He admits the sudden onset of a throbbing, moderately intense, right-sided headache and a sensation of feeling lightheaded accompanying the sudden onset of blurred vision on 07/25/2018. Patient admits that the blurred vision is worse in his left eye than his right and the headache is most intense on the right side of his head. He admits a prior similar headache on one occasion earlier this year associated with a stroke, without neurologic sequelae. He admits the associated symptoms of vomiting x1 with his current episode. He denies other accompanying or associated symptoms. He has not identified any aggravating or ameliorating factors for his blurred vision or headache. In the emergency room he was found to have an acute right occipital infarction by CAT scan. He was subsequently admitted to the hospital per the stroke protocol. 12/27/[id number]-famk-old male admitted with new onset CVA. Patient only complaint is his vision. Otherwise he said he is doing well. No acute events since admission. Plan to do the MRI of the neck and head today. Stroke protocol was implemented. Blood pressure today is 143/100. Plan is to continue the present management. 12/28/[id number]-wvay-old male admitted with stroke. MRI of the brain shows acute stroke involving the occipital lobe. PT OT working with him the only complaint he has a left-sided visual problems. Alert awake communicating well. I spoke to Dr. Valverde this morning his recommendation is to arrange for a NICOLE as an outpatient. Reason For Visit: ACUTE ISCHEMIC INFARCTION RIGHT POSTERIOR CEREBRAL Physical Exam Vital Signs: Temp Pulse Resp BP Pulse Ox 98.0 F 65 18 137/87 H 98 12/28/18 07:38 12/28/18 07:38 12/28/18 07:38 12/28/18 07:38 12/28/18 07:38 Intake & Output 12/27/18 12/28/18 12/29/18 06:59 06:59 06:59 Intake Total 3020 Balance 3020 Weight 118.3 kg 118.7 kg General appearance: PRESENT: no acute distress, cooperative, obese Head exam: PRESENT: atraumatic Eye exam: PRESENT: PERRLA Mouth exam: PRESENT: moist, tongue midline Teeth exam: PRESENT: poor dentation Neck exam: ABSENT: carotid bruit, JVD, lymphadenopathy, thyromegaly Respiratory exam: PRESENT: decreased breath sounds Cardiovascular exam: PRESENT: RRR. ABSENT: diastolic murmur, rubs, systolic murmur GI/Abdominal exam: PRESENT: normal bowel sounds, soft. ABSENT: distended, guarding, mass, organolmegaly, rebound, tenderness Rectal exam: PRESENT: deferred Extremities exam: PRESENT: full ROM. ABSENT: calf tenderness, clubbing, pedal edema Neurological exam: PRESENT: alert, awake, oriented to person, oriented to place, oriented to time, oriented to situation, CN II-XII grossly intact. ABSENT: motor sensory deficit Psychiatric exam: PRESENT: appropriate affect, normal mood. ABSENT: homicidal ideation, suicidal ideation Results Laboratory Results: 12/28/18 05:23 12/28/18 05:23 12/28/18 12/28/18 05:23 05:23 WBC 8.5 RBC 4.47 Hgb 12.1 L Hct 37.2 L MCV 83 MCH 27.0 MCHC 32.5 RDW 12.8 Plt Count 166 Seg Neutrophils % 56.2 Sodium 137.4 Potassium 4.3 Chloride 99 Carbon Dioxide 28 Anion Gap 10 BUN 13 Creatinine 1.11 Est GFR ( Amer) > 60 Glucose 164 H Calcium 9.7 Magnesium 2.1 Total Bilirubin 0.6 AST 24 Alkaline Phosphatase 75 Total Protein 7.0 Albumin 4.1 Triglycerides 140 Cholesterol 118.73 LDL Cholesterol Direct 63 VLDL Cholesterol 28.0 HDL Cholesterol 39 L 12/27/18 02:08 Troponin I 0.046 Impressions: Brain MRI with MRA 12/27/18 00:00 IMPRESSION: NORMAL MRA OF THE [place] OF [place]. Head MRI 12/27/18 00:00 IMPRESSION: Acute nonhemorrhagic infarct right occipital lobe. Acute lacunar infarct right cerebellum. EVIDENCE OF ACUTE STROKE: YES. 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 Neck MRA 12/27/18 00:00 IMPRESSION: NO SIGNIFICANT STENOSIS. Head CT 12/27/18 01:44 IMPRESSION: 1. New large wedge-shaped area of decreased attenuation in the right occipital lobe consistent with an acute infarct in the right posterior cerebral artery distribution. There is no evidence of acute intracranial hemorrhage or midline shift. 2. Otherwise, unremarkable unenhanced head CT. Chest X-Ray 12/27/18 02:51 IMPRESSION: No acute findings. No focal lung consolidation. 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 He will be continued on his current medications appropriate for acute stroke therapy. He will be observed closely throughout his hospital course for any changes in his neurologic status. The patient will use Nubain 5 to 10 mg IV every 3 hours on a as needed basis for his headache using a sliding scale for pain. 12/27/18-admitted for new onset cva and pr qian prior cva in october this year. Stroke protocol was implemented. Patient is going for MRI of the neck and head today. PT consult was requested. Fall precautions are requested. Presently on aspirin, atorvastatin. To start him on Plavix from today. 12/28/[id number]-xoql-old male admitted with CVA. MRI of the brain indicates acute stroke involving the posterior aspect of the occipital lobe. Patient only complaints is a left-sided visual defects. Alert awake communicating well. Stroke protocol was implemented during the hospital stay. (2) Diabetes mellitus type 2 in obese Is this a current diagnosis for this admission?: Yes Plan: Patient be continued on his usual diabetic diet and diabetic therapy. Hemoglobin A1c will be obtained to evaluate the efficacy of his current therapy. Adjustments will be made to his therapy as needed. Before meals and at bedtime Accu-Cheks will be obtained and a sliding scale insulin regiment will be used to control hyperglycemia, a hypoglycemic protocol is in place for treatment of hypoglycemic readings. 12/27/2018-patient has history of type 2 diabetes mellitus latest blood sugar is 128. On insulin sliding scale. Presently he is on metformin. Plan is to continue the present management diet exercise weight loss lifestyle modifications are discussed with the patient. Hemoglobin A1c is pending. 12/28/2018-patient blood sugar is to 10 on insulin sliding scale he is also on metformin at home. Patient's hemoglobin A1c is 8.1. Diet exercise weight loss lifestyle modifications are discussed with the patient. Patient creatinine is 1.11 I think he can continue his metformin at home. (3) Hypertension Qualifiers: Hypertension type: essential hypertension Qualified Code(s): I10 - Essential (primary) hypertension Is this a current diagnosis for this admission?: Yes Plan: Patient will be continued on his current antihypertensive regiment with adjustments made as required for adequate control. Patient's blood pressure was monitored closely throughout his hospital course. 12/27/2018-patient has history of hypertension latest blood pressure is 143/84. Presently on lisinopril and metoprolol plan is to continue the present management. 12/28/2018-patient blood pressure today is 130/93. Pulse rate of 71. On lisinopril and metformin plan is to continue those medications. low Salt diet and exercise was advised. (4) HLD (hyperlipidemia) Qualifiers: Hyperlipidemia type: mixed hyperlipidemia Qualified Code(s): E78.2 - Mixed hyperlipidemia Is this a current diagnosis for this admission?: Yes (5) Coronary artery disease Qualifiers: Coronary Disease-Associated Artery/Lesion type: [place] artery [place] vs. transplanted heart: [place] heart Associated angina: without angina Qualified Code(s): I25.10 - Atherosclerotic heart disease of [place] coronary artery without angina pectoris Is this a current diagnosis for this admission?: Yes (6) Morbid obesity Is this a current diagnosis for this admission?: No - Time Time Spent with patient: 25-34 minutes Smoking Cessation Education: over 10 minutes Anticipated discharge: Home
--- NOTE | 2018-12-28 10:44 | PDOC PROGRESS REPORT ---
Subjective Progress Note for:: 12/28/18 Subjective:: 48 year old male who presented to the emergency room with a with a 1 day history of blurred vision. He admits the sudden onset of a throbbing, moderately intense, right-sided headache and a sensation of feeling lightheaded accompanying the sudden onset of blurred vision on 07/25/2018. Patient admits that the blurred vision is worse in his left eye than his right and the headache is most intense on the right side of his head. He admits a prior similar headache on one occasion earlier this year associated with a stroke, without neurologic sequelae. He admits the associated symptoms of vomiting x1 with his current episode. He denies other accompanying or associated symptoms. He has not identified any aggravating or ameliorating factors for his blurred vision or headache. In the emergency room he was found to have an acute right occipital infarction by CAT scan. He was subsequently admitted to the hospital per the stroke protocol. 12/27/[id number]-qqoa-old male admitted with new onset CVA. Patient only complaint is his vision. Otherwise he said he is doing well. No acute events since admission. Plan to do the MRI of the neck and head today. Stroke protocol was implemented. Blood pressure today is 143/100. Plan is to continue the present management. 12/28/[id number]-fvrr-old male admitted with stroke. MRI of the brain shows acute stroke involving the occipital lobe. PT OT working with him the only complaint he has a left-sided visual problems. Alert awake communicating well. I spoke to Dr. Valverde this morning his recommendation is to arrange for a NICOLE as an outpatient. 9 8 Reason For Visit: ACUTE ISCHEMIC INFARCTION RIGHT POSTERIOR CEREBRAL Physical Exam Vital Signs: Temp Pulse Resp BP Pulse Ox 98.0 F 65 18 137/87 H 98 12/28/18 07:38 12/28/18 07:38 12/28/18 07:38 12/28/18 07:38 12/28/18 07:38 Intake & Output 12/27/18 12/28/18 12/29/18 06:59 06:59 06:59 Intake Total 3020 Balance 3020 Weight 118.3 kg 118.7 kg Results Laboratory Results: 12/28/18 05:23 12/28/18 05:23 12/28/18 12/28/18 05:23 05:23 WBC 8.5 RBC 4.47 Hgb 12.1 L Hct 37.2 L MCV 83 MCH 27.0 MCHC 32.5 RDW 12.8 Plt Count 166 Seg Neutrophils % 56.2 Sodium 137.4 Potassium 4.3 Chloride 99 Carbon Dioxide 28 Anion Gap 10 BUN 13 Creatinine 1.11 Est GFR ( Amer) > 60 Glucose 164 H Calcium 9.7 Magnesium 2.1 Total Bilirubin 0.6 AST 24 Alkaline Phosphatase 75 Total Protein 7.0 Albumin 4.1 Triglycerides 140 Cholesterol 118.73 LDL Cholesterol Direct 63 VLDL Cholesterol 28.0 HDL Cholesterol 39 L 12/27/18 02:08 Troponin I 0.046 Impressions: Brain MRI with MRA 12/27/18 00:00 IMPRESSION: NORMAL MRA OF THE [place] OF [place]. Head MRI 12/27/18 00:00 IMPRESSION: Acute nonhemorrhagic infarct right occipital lobe. Acute lacunar infarct right cerebellum. EVIDENCE OF ACUTE STROKE: YES. 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 Neck MRA 12/27/18 00:00 IMPRESSION: NO SIGNIFICANT STENOSIS. Head CT 12/27/18 01:44 IMPRESSION: 1. New large wedge-shaped area of decreased attenuation in the right occipital lobe consistent with an acute infarct in the right posterior cerebral artery distribution. There is no evidence of acute intracranial hemorrhage or midline shift. 2. Otherwise, unremarkable unenhanced head CT. Chest X-Ray 12/27/18 02:51 IMPRESSION: No acute findings. No focal lung consolidation. 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 He will be continued on his current medications appropriate for acute stroke therapy. He will be observed closely throughout his hospital course for any changes in his neurologic status. The patient will use Nubain 5 to 10 mg IV every 3 hours on a as needed basis for his headache using a sliding scale for pain. 12/27/18-admitted for new onset cva and pr qian prior cva in october this year. Stroke protocol was implemented. Patient is going for MRI of the neck and head today. PT consult was requested. Fall precautions are requested. Presently on aspirin, atorvastatin. To start him on Plavix from today. 12/28/[id number]-vtzd-old male admitted with CVA. MRI of the brain indicates acute stroke involving the posterior aspect of the occipital lobe. Patient only complaints is a left-sided visual defects. Alert awake communicating well. Stroke protocol was implemented during the hospital stay. (2) Diabetes mellitus type 2 in obese Is this a current diagnosis for this admission?: Yes (3) Hypertension Qualifiers: Hypertension type: essential hypertension Qualified Code(s): I10 - Essential (primary) hypertension Is this a current diagnosis for this admission?: Yes Plan: Patient will be continued on his current antihypertensive regiment with adjustments made as required for adequate control. Patient's blood pressure was monitored closely throughout his hospital course. 12/27/2018-patient has history of hypertension latest blood pressure is 143/84. Presently on lisinopril and metoprolol plan is to continue the present management. 12/28/2018-patient blood pressure today is 130/93. Pulse rate of 71. On lisinopril and metformin plan is to continue those medications. low Salt diet and exercise was advised. (4) HLD (hyperlipidemia) Qualifiers: Hyperlipidemia type: mixed hyperlipidemia Qualified Code(s): E78.2 - Mixed hyperlipidemia Is this a current diagnosis for this admission?: Yes (5) Coronary artery disease Qualifiers: Coronary Disease-Associated Artery/Lesion type: [place] artery [place] vs. transplanted heart: [place] heart Associated angina: without angina Qualified Code(s): I25.10 - Atherosclerotic heart disease of [place] coronary artery without angina pectoris Is this a current diagnosis for this admission?: Yes (6) Morbid obesity Is this a current diagnosis for this admission?: No - Time Time Spent with patient: 25-34 minutes Medications reviewed and adjusted accordingly: Yes Anticipated discharge: Home
--- NOTE | 2018-12-28 18:38 | EKG REPORT ---
SEVERITY:- ABNORMAL ECG - SINUS RHYTHM VENTRICULAR PREMATURE COMPLEX ABNORMAL T, CONSIDER ISCHEMIA, INFERIOR LEADS : Confirmed by: Tonia Vaz 28-Dec-2018 18:37:10
[2018-12-28] MEDS: NALBUPHINE HCL INJ 10 MG/1 ML AMPULE IV PRN (20:17)
[2018-12-28] MEDS: ATORVASTATIN CALCIUM 40 MG TABLET PO SCH (22:34)
[2018-12-29] MEDS: HEPARIN SOD (PORCINE) 5,000 UNIT/ML 1 ML VIAL SUBCUT SCH ×3 (06:13→22:37)
[2018-12-29] MEDS: HYDROCHLOROTHIAZIDE 25 MG TABLET PO SCH (08:12)
[2018-12-29] MEDS: METFORMIN HCL 500 MG TABLET PO SCH ×2 (08:12→17:16)
[2018-12-29] MEDS: INSULIN REG, HUMAN 100 UNIT/ML 3 ML VIAL (PYX) SUBCUT SCH ×4 (08:12→22:37)
[2018-12-29] MEDS: MULTIVITAMIN TABLET PO SCH (09:20)
[2018-12-29] MEDS: CLOPIDOGREL BISULFATE 75 MG TABLET PO SCH (09:20)
[2018-12-29] MEDS: ASPIRIN 81 MG TABLET, ENT COATED PO SCH (09:20)
[2018-12-29] MEDS: OMEGA-3 ACID ETHYL ESTERS 1 GM CAPSULE PO SCH (09:20)
[2018-12-29] MEDS: METOPROLOL SUCCINATE 50 MG TAB.SR.24H PO SCH (09:21)
[2018-12-29] MEDS: LOSARTAN POTASSIUM 50 MG TABLET PO SCH (09:21)
[2018-12-29] MEDS: NALBUPHINE HCL INJ 10 MG/1 ML AMPULE IV PRN ×3 (09:28→22:38)
--- NOTE | 2018-12-29 10:27 | PDOC PROGRESS REPORT ---
Subjective Progress Note for:: 12/29/18 Subjective:: 48 year old male who presented to the emergency room with a with a 1 day history of blurred vision. He admits the sudden onset of a throbbing, moderately intense, right-sided headache and a sensation of feeling lightheaded accompanying the sudden onset of blurred vision on 07/25/2018. Patient admits that the blurred vision is worse in his left eye than his right and the headache is most intense on the right side of his head. He admits a prior similar headache on one occasion earlier this year associated with a stroke, without neurologic sequelae. He admits the associated symptoms of vomiting x1 with his current episode. He denies other accompanying or associated symptoms. He has not identified any aggravating or ameliorating factors for his blurred vision or headache. In the emergency room he was found to have an acute right occipital infarction by CAT scan. He was subsequently admitted to the hospital per the stroke protocol. 12/27/[id number]-kcfv-old male admitted with new onset CVA. Patient only complaint is his vision. Otherwise he said he is doing well. No acute events since admission. Plan to do the MRI of the neck and head today. Stroke protocol was implemented. Blood pressure today is 143/100. Plan is to continue the present management. 12/28/[id number]-bnlt-old male admitted with stroke. MRI of the brain shows acute stroke involving the occipital lobe. PT OT working with him the only complaint he has a left-sided visual problems. Alert awake communicating well. I spoke to Dr. Valverde this morning his recommendation is to arrange for a NICOLE as an outpatient. 12/29/[id number]-pbdj-old male admitted with a stroke MRI of the brain shows nonhemorrhagic occipital lobe acute lacunar infarct in the right cerebellum. Reason For Visit: ACUTE ISCHEMIC INFARCTION RIGHT POSTERIOR CEREBRAL Physical Exam Vital Signs: Temp Pulse Resp BP Pulse Ox 98.0 F 65 20 144/89 H 100 12/29/18 07:51 12/29/18 08:00 12/29/18 08:00 12/29/18 08:00 12/29/18 08:00 Intake & Output 12/28/18 12/29/18 12/30/18 06:59 06:59 06:59 Intake Total 3020 1484 Balance 3020 1484 Weight 118.7 kg 120.9 kg General appearance: PRESENT: no acute distress Head exam: PRESENT: atraumatic Eye exam: PRESENT: PERRLA Mouth exam: PRESENT: moist, tongue midline Teeth exam: PRESENT: poor dentation Neck exam: ABSENT: carotid bruit, JVD, lymphadenopathy, thyromegaly Respiratory exam: PRESENT: clear to auscultation fawn. ABSENT: rales, rhonchi, wheezes Cardiovascular exam: PRESENT: RRR. ABSENT: diastolic murmur, rubs, systolic murmur GI/Abdominal exam: PRESENT: normal bowel sounds, soft. ABSENT: distended, gu arding, mass, organolmegaly, rebound, tenderness Rectal exam: PRESENT: deferred Extremities exam: PRESENT: full ROM. ABSENT: calf tenderness, clubbing, pedal edema Neurological exam: PRESENT: alert, awake, oriented to person, oriented to place, oriented to time, oriented to situation, CN II-XII grossly intact. ABSENT: mot or sensory deficit Psychiatric exam: PRESENT: appropriate affect, normal mood. ABSENT: homicidal ideation, suicidal ideation Skin exam: PRESENT: dry, intact, warm. ABSENT: cyanosis, rash Results Laboratory Results: 12/28/18 05:23 12/28/18 05:23 12/27/18 02:08 Troponin I 0.046 Impressions: Brain MRI with MRA 12/27/18 00:00 IMPRESSION: NORMAL MRA OF THE [place]. Head MRI 12/27/18 00:00 IMPRESSION: Acute nonhemorrhagic infarct right occipital lobe. Acute lacunar infarct right cerebellum. EVIDENCE OF ACUTE STROKE: YES. Right LEAD PROCESS ENGINEER and vertebrobasilar suggesting possible embolic etiology. Neck MRA 12/27/18 00:00 IMPRESSION: NO SIGNIFICANT STENOSIS. Head CT 12/27/18 01:44 IMPRESSION: 1. New large wedge-shaped area of decreased attenuation in the right occipital lobe consistent with an acute infarct in the right posterior cerebral artery distribution. There is no evidence of acute intracranial hemorrhage or midline shift. 2. Otherwise, unremarkable unenhanced head CT. Chest X-Ray 12/27/18 02:51 IMPRESSION: No acute findings. No focal lung consolidation. 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 He will be continued on his current medications appropriate for acute stroke therapy. He will be observed closely throughout his hospital course for any changes in his neurologic status. The patient will use Nubain 5 to 10 mg IV every 3 hours on a as needed basis for his headache using a sliding scale for pain. 12/27/18-admitted for new onset cva and pr qian prior cva in october this year. Stroke protocol was implemented. Patient is going for MRI of the neck and head today. PT consult was requested. Fall precautions are requested. Presently on aspirin, atorvastatin. To start him on Plavix from today. 12/28/[id number]-kjdw-old male admitted with CVA. MRI of the brain indicates acute stroke involving the posterior aspect of the occipital lobe. Patient only complaints is a left-sided visual defects. Alert awake communicating well. Stroke protocol was implemented during the hospital stay. 12/29/18-48 yr male admitted new cva and still having headache ... mri of the brain indicate new onset nonhemorrhagic stroke in occipital lobe and also small lacunar infarct in the right cerebellum. spoke To Dr. Ez Chapman for outpatie nt NICOLE is going to get in touch with the patient and family members to keep make arrangements to do it as an outpatient. (2) Diabetes mellitus type 2 in obese Is this a current diagnosis for this admission?: Yes Plan: Patient be continued on his usual diabetic diet and diabetic therapy. Hemoglobin A1c will be obtained to evaluate the efficacy of his current therapy. Adjustments will be made to his therapy as needed. Before meals and at bedtime Accu-Cheks will be obtained and a sliding scale insulin regiment will be used to control hyperglycemia, a hypoglycemic protocol is in place for treatment of hypoglycemic readings. 12/27/2018-patient has history of type 2 diabetes mellitus latest blood sugar is 128. On insulin sliding scale. Presently he is on metformin. Plan is to continue the present management diet exercise weight loss lifestyle modifications are discussed with the patient. Hemoglobin A1c is pending. 12/28/2018-patient blood sugar is to 10 on insulin sliding scale he is also on metformin at home. Patient's hemoglobin A1c is 8.1. Diet exercise weight loss lifestyle modifications are discussed with the patient. Patient creatinine is 1.11 I think he can continue his metformin at home. 12/29/2018-patient's latest blood sugar today is 130. Hemoglobin A1c is 8.1 again a diet exercise weight loss lifestyle modifications are discussed with the patient. To continue insulin sliding scale. (3) Hypertension Qualifiers: Hypertension type: essential hypertension Qualified Code(s): I10 - Essential (primary) hypertension Is this a current diagnosis for this admission?: Yes Plan: Patient will be continued on his current antihypertensive regiment with adjustments made as required for adequate control. Patient's blood pressure was monitored closely throughout his hospital course. 12/27/2018-patient has history of hypertension latest blood pressure is 143/84. Presently on lisinopril and metoprolol plan is to continue the present management. 12/28/2018-patient blood pressure today is 130/93. Pulse rate of 71. On lisinopril and metoprolol plan is to continue those medications. low Salt diet and exercise was advised. 12/29/2018-patient blood pressure today is 130/90. Stable. Pulse rate is around 67. On lisinopril and metoprolol plan is to continue the present management. (4) HLD (hyperlipidemia) Qualifiers: Hyperlipidemia type: mixed hyperlipidemia Qualified Code(s): E78.2 - Mixed hyperlipidemia Is this a current diagnosis for this admission?: Yes (5) Coronary artery disease Qualifiers: Coronary Disease-Associated Artery/Lesion type: [place] artery [place] vs. transplanted heart: [place] heart Associated angina: without angina Qualified Code(s): I25.10 - Atherosclerotic heart disease of [place] coronary artery without angina pectoris Is this a current diagnosis for this admission?: Yes Plan: Patient be continued on his usual regimen for control of his coronary artery disease. He will be observed closely on a clinical basis throughout his hospital course for any changes in his cardiac status. 12/27/2018-patient is given the history of coronary artery disease with heart attack this year. No complaints of chest pain today. 12/2018-patient has history of coronary artery disease scheduled for stress test today it Dr. Valverde's office as an outpatient because the patient admitted with a new onset stroke stress test was canceled and I requested the patient to get in touch with Dr. Valverde's office to reschedule the stress is again. (6) Morbid obesity Is this a current diagnosis for this admission?: No - Time Time Spent with patient: 25-34 minutes Medications reviewed and adjusted accordingly: Yes Anticipated discharge: Home
[2018-12-29] MEDS: ATORVASTATIN CALCIUM 40 MG TABLET PO SCH (22:42)
[2018-12-30] MEDS: HEPARIN SOD (PORCINE) 5,000 UNIT/ML 1 ML VIAL SUBCUT SCH ×2 (05:32→13:37)
[2018-12-30] MEDS: METFORMIN HCL 500 MG TABLET PO SCH (08:27)
[2018-12-30] MEDS: HYDROCHLOROTHIAZIDE 25 MG TABLET PO SCH (08:27)
[2018-12-30] MEDS: INSULIN REG, HUMAN 100 UNIT/ML 3 ML VIAL (PYX) SUBCUT SCH ×2 (08:28→12:47)
[2018-12-30] MEDS: ASPIRIN 81 MG TABLET, ENT COATED PO SCH (09:50)
[2018-12-30] MEDS: OMEGA-3 ACID ETHYL ESTERS 1 GM CAPSULE PO SCH (09:50)
[2018-12-30] MEDS: MULTIVITAMIN TABLET PO SCH (09:50)
[2018-12-30] MEDS: METOPROLOL SUCCINATE 50 MG TAB.SR.24H PO SCH (09:50)
[2018-12-30] MEDS: LOSARTAN POTASSIUM 50 MG TABLET PO SCH (09:51)
[2018-12-30] MEDS: CLOPIDOGREL BISULFATE 75 MG TABLET PO SCH (09:51)
[2018-12-30] MEDS: TRAMADOL HCL 50 MG TABLET PO PRN (09:55)
[2018-12-30] MEDS ORDERED: BUTALB/ACETAMINOPHEN/CAFFEINE 1 TAB EACH PO ONE (13:00)
[2018-12-30 14:58] VITALS: BP 136/99
[2019-01-01 07:20] LABS: ANTICARDIOLIPIN IGA AB <9 APL U/mL (0-11); ANTICARDIOLIPIN IGG AB <9 GPL U/mL (0-14); ANTICARDIOLIPIN IGM AB <9 MPL U/mL (0-12)
--- NOTE | 2019-01-01 19:07 | PDOC DISCHARGE SUMMARY ---
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) stroke Is this a current diagnosis for this admission?: Yes (2) Coronary artery disease Is this a current diagnosis for this admission?: Yes (3) Diabetes mellitus type 2 in obese Is this a current diagnosis for this admission?: Yes (4) HLD (hyperlipidemia) Is this a current diagnosis for this admission?: Yes (5) Hypertension Is this a current diagnosis for this admission?: Yes - Additional Information Resuscitation Status: Full Code Discharge Diet: Cardiac, Diabetic Discharge Activity: Activity As Tolerated, Balance Activity w/Rest Prescriptions: Losartan Potassium [Cozaar 50 mg Tablet] 100 mg PO DAILY #60 tablet Butalb/Acetaminophen/Caffeine [Fioricet (50-325-40 mg) Tablet] 1 - 2 tab PO Q4H #20 tab Metformin HCl [Glucophage 500 mg Tablet] 500 mg PO BIDACBS #60 tablet Atorvastatin Calcium [Lipitor 40 mg Tablet] 40 mg PO QHS #30 tablet Clopidogrel Bisulfate [Plavix 75 mg Tablet] 75 mg PO DAILY #30 tablet Metoprolol Succinate [Toprol Xl 50 mg Tab.sr] 50 mg PO DAILY #30 tab.sr.24h Home Medications: Multivit-Min/Folic/Vit K/Lycop [Men's 50 Plus Multivitamin Tab] 1 each PO DAILY 10/29/18 [place]-3/Dha/Epa/Fish Oil [Fish Oil 1,000 mg Softgel] 1,000 mg PO DAILY 10/29/18 Aspirin [Ecotrin 81 mg EC Tablet] 81 mg PO DAILY tabec 10/30/18 Hydrochlorothiazide [Hydrodiuril 25 mg Tablet] 25 mg PO QAM 14 Days #14 tablet 10/30/18 Acetaminophen [Tylenol 325 mg Tablet] 650 mg PO Q4HP PRN tablet 12/30/18 Atorvastatin Calcium [Lipitor 40 mg Tablet] 40 mg PO QHS #30 tablet 12/30/18 Butalb/Acetaminophen/Caffeine [Fioricet (50-325-40 mg) Tablet] 1 - 2 tab PO Q4H #20 tab 12/30/18 Clopidogrel Bisulfate [Plavix 75 mg Tablet] 75 mg PO DAILY #30 tablet 12/30/18 Losartan Potassium [Cozaar 50 mg Tablet] 100 mg PO DAILY #60 tablet 12/30/18 Metformin HCl [Glucophage 500 mg Tablet] 500 mg PO BIDACBS #60 tablet 12/30/18 Metoprolol Succinate [Toprol Xl 50 mg Tab.sr] 50 mg PO DAILY #30 tab.sr.24h 12/30/18 History of Present Illness History of Present Illness: Per H&P by Dr. Mancia: HAYLIE RODRIGUEZ is a 48 year old male who presented to the emergency room with a with a 1 day history of blurred vision. He admits the sudden onset of a throbbing, moderately intense, right-sided headache and a sensation of feeling lightheaded accompanying the sudden onset of blurred vision on 07/25/2018. Patient admits that the blurred vision is worse in his left eye than his right and the headache is most intense on the right side of his head. He admits a prior similar headache on one occasion earlier this year associated with a stroke, without neurologic sequelae. He admits the associated symptoms of vomiting x1 with his current episode. He denies other accompanying or associated symptoms. He has not identified any aggravating or ameliorating factors for his blurred vision or headache. In the emergency room he was found to have an acute right occipital infarction by CAT scan. He was subsequently admitted to the hospital per the stroke protocol. Hospital Course Hospital Course: MRA of the head demonstrated normal [place] MRA of the neck was negative for significant stenosis MRI Head showed acute nonhemorrhagic infarct of the right occipital lobe and acute lacunar infarct of the right cerebellum. Head CT showed an new acute right occipital lobe infarct in the right posterior cerebral artery distribution. The patient was admitted to [facility] on continuous cardiac telemetry. The patient was started on aspirin, Plavix, and statin therapy. The patient was initially allowed permissive hypertension; blood pressure control was obtained through continuing his with losartan, hydrochlorothiazide, and metoprolol. The patient's blood glucose was closely monitored. Hemoglobin A1c is 8.1%. He is advised on the importance of maintaining a consistent carb/cardiac diet was provided the opportunity to meet with the patient educator and registered dietitian. The previous provider spoke with cardiology; recommended outpatient transesophageal echocardiogram. Arrangements were made for the patient to follow-up with Dr. Ez Chapman shortly after discharge for NICOLE. Therefore; pat ient was discharged on dual antiplatelet and statin therapy; he was not started on chronic anticoagulation prior to discharge. At time of discahrge, the patient is in stable condition, maintaining oxygen saturations on room air, independently ambulatory with only residual complaint being blurred vision and left peripheral vision deficits. Arrangements were made for the patient to receive home health nursing, physical therapy, speech therapy, and social media job titles. He is advised of the importance of following up with his primary care provider and with Dr. Chapman within 1 week. He is instructed to take his medications as prescribed. He is encouraged to follow a cardiac/consistent carb diet. He is advised to return to the emergency department as needed for any concerning symptoms. Physical Exam Vital Signs: Temp Pulse Resp BP Pulse Ox 98.0 F 75 17 136/99 H 98 12/30/18 14:56 12/30/18 14:56 12/30/18 14:56 12/30/18 14:56 12/30/18 14:56 Intake & Output 12/31/18 01/01/19 01/02/19 06:59 06:59 06:59 Intake Total 480 Balance 480 General appearance: PRESENT: no acute distress, cooperative, obese, well- developed, well-nourished Head exam: PRESENT: atraumatic, normocephalic Eye exam: PRESENT: conjunctiva pink, EOMI, PERRLA. ABSENT: scleral icterus Ear exam: PRESENT: normal external ear exam Mouth exam: PRESENT: moist, tongue midline Neck exam: ABSENT: carotid bruit, JVD, lymphadenopathy, thyromegaly Respiratory exam: PRESENT: clear to auscultation fawn, symmetrical, unlabored. ABSENT: rales, rhonchi, wheezes Cardiovascular exam: PRESENT: RRR, +S1, +S2. ABSENT: diastolic murmur, rubs, systolic murmur Pulses: PRESENT: normal dorsalis pedis pul Vascular exam: PRESENT: normal capillary refill GI/Abdominal exam: PRESENT: normal bowel sounds, soft. ABSENT: distended, guarding, mass, organolmegaly, rebound, tenderness Rectal exam: PRESENT: deferred Extremities exam: PRESENT: full ROM. ABSENT: calf tenderness, clubbing, pedal edema Neurological exam: PRESENT: alert, awake, oriented to person, oriented to place, oriented to time, oriented to situation, CN II-XII grossly intact. ABSENT: motor sensory deficit Psychiatric exam: PRESENT: anxious, appropriate affect. ABSENT: homicidal ideation, suicidal ideation Skin exam: PRESENT: dry, intact, warm. ABSENT: cyanosis, rash Results Laboratory Results: 12/28/18 05:23 12/28/18 05:23 12/27/18 02:08 Troponin I 0.046 Impressions: Brain MRI with MRA 12/27/18 00:00 IMPRESSION: NORMAL MRA OF THE [place]. Head MRI 12/27/18 00:00 IMPRESSION: Acute nonhemorrhagic infarct right occipital lobe. Acute lacunar infarct right cerebellum. EVIDENCE OF ACUTE STROKE: YES. Right TUTORING ASSISTANT and vertebrobasilar suggesting possi ble embolic etiology. Neck MRA 12/27/18 00:00 IMPRESSION: NO SIGNIFICANT STENOSIS. Head CT 12/27/18 01:44 IMPRESSION: 1. New large wedge-shaped area of decreased attenuation in the right occipital lobe consistent with an acute infarct in the right posterior cerebral artery distribution. There is no evidence of acute intracranial hemorrhage or midline shift. 2. Otherwise, unremarkable unenhanced head CT. Chest X-Ray 12/27/18 02:51 IMPRESSION: No acute findings. No focal lung consolidation. Qualifiers - * PATIENT BEING DISCHARGED WITH ANY OF THE FOLLOWING DIAGNOSIS: No Acute Heart Failure - Is this a Heart Failure Patient?: No Plan Discharge Plan: Patient is discharged home with home health nursing. He is instructed to follow up with primary care provider within [address] Ez Chapman, as scheduled, for outpatient NICOLE (transesophageal echocardiogram) Take medications as prescribed. Eat a low sodium, low salt diet, diabetic diet. Return to the emergency department as needed for concerning symptoms. Time Spent: Greater than 30 Minutes
== END 2018-12-30 15:45 | disposition home or self-care (01) | DRG 66 ==
LOC: ER 23:40 → EH 12-27 04:43 → 3S 12-27 06:20
PROVIDERS: ADMIT Emergency Medicine; ATTEND Emergency Medicine
DX: I63.511 Cerebral infarction due to unspecified occlusion or stenosis of right middle cerebral artery (principal); H53.8 Other visual disturbances; I10 Essential (primary) hypertension; E11.8 Type 2 diabetes mellitus with unspecified complications; I25.10 Atherosclerotic heart disease of native coronary artery without angina pectoris; E78.2 Mixed hyperlipidemia; E66.01 Morbid (severe) obesity due to excess calories; I25.2 Old myocardial infarction; Z86.73 Personal history of transient ischemic attack (TIA), and cerebral infarction without residual deficits; Z87.891 Personal history of nicotine dependence; Z79.84 Long term (current) use of oral hypoglycemic drugs; Z79.82 Long term (current) use of aspirin; Z79.899 Other long term (current) drug therapy; Z68.32 Body mass index [BMI] 32.0-32.9, adult
CPT/HCPCS: 36415; 70450; 70544; 70547; 70551; 71045; 80048; 80053; 80061; 81001; 82962; 83036; 83735; 84484; 85025; 85597; 85598; 85610; 85613; 85652; 85730; 85732; 86038; 86140; 86146; 86147; 86148; 86849; 93005; 93010; 96374; 99285; J1644; J1815; J1885; J2300; J2405; J2765; J3490